=== PATIENT | female | born 1950 | race Caucasian/White ===

== ENCOUNTER 2018-07-16 10:57 | Inpatient (IN) | payer OTHER ==
[2018-07-16 11:30] VITALS: BMI 16.5
--- NOTE | 2018-07-16 12:56 | HP ---
CIWA Score - CIWA Score Nausea/Vomitin Muscle Tremors: 2 Anxiety: 2 Agitation: 2 Paroxysmal Sweats: 1-Minimal Palms Moist Orientation: 0-Oriented Tacttile Disturbances: 1-Very Mild Itch/Numbness Auditory Disturbances: 1-Very Mild Visual Disturbances: 0-None Headache: 2-Mild CIWA-Ar Total Score: 13 Admission ROS BHS - HPI Chief Complaint: i need help to stop drinking alcohol Allergies/Adverse Reactions: Allergies Allergy/AdvReac Type Severity Reaction Status Date / Time No Known Allergies Allergy Verified 07/16/18 12:47 History of Present Illness: this 68 years old female with alcohol dependence,seeking detox,multiple admissions in detox,last detox 06/11/18 to 06/15/18 history of seizure last 2015 syncope alcohol related longest period of sobriety 6 months weight loss - Ebola screening Have you traveled outside of the country in the last 21 days: No (N) Have you had contact with anyone from an Ebola affected area: No Have you been sick,other than usual withdrawal symptoms: No Do you have a fever: No - Review of Systems Constitutional: Loss of Appetite, Malaise, Night Sweats, Changes in sleep, Weakness, Unintentional Wgt. Loss EENT: reports: Nose Congestion Respiratory: reports: No Symptoms reported Cardiac: reports: No Symptoms Reported GI: reports: Nausea, Abdominal cramping : reports: No Symptoms Reported Musculoskeletal: reports: Back Pain, Muscle Pain Integumentary: reports: Dryness Neuro: reports: Tremors Endocrine: reports: No Symptoms Reported Hematology: reports: No Symptoms Reported Psychiatric: reports: Judgement Intact, Mood/Affect Appropiate, Orientated x3 Patient History - Patient Medical History Hx Anemia: No Hx Asthma: No Hx Chronic Obstructive Pulmonary Disease (COPD): No Hx Cancer: No Hx Cardiac Disorders: No (States one episode of AFib, in past, which resolved) Hx Congestive Heart Failure: No Hx Hypertension: No Hx Hypercholesterolemia: No Hx Pacemaker: No HX Cerebrovascular Accident: No Hx Seizures: Yes (alcohol related-last episode was in 2016) Hx Dementia: No Hx Diabetes: No Hx Gastrointestinal Disorders: No Hx Liver Disease: No Hx Genitourinary Disorders: No Hx Sexually Transmitted Disorders: No Hx Renal Disease (ESRD): No Hx Thyroid Disease: No Hx Human Immunodeficiency Virus (HIV): No (2016 last) Hx Hepatitis C: No Hx Depression: No Hx Suicide Attempt: No Hx Bipolar Disorder: No Hx Schizophrenia: No Other Medical History: no sucidal,no homicidal - Patient Surgical History Past Surgical History: Yes Hx Neurologic Surgery: No Hx Cataract Extraction: No Hx Cardiac Surgery: No Hx Lung Surgery: No Hx Breast Surgery: No Hx Breast Biopsy: No Hx Abdominal Surgery: No Hx Appendectomy: No Hx Cholecystectomy: No Hx Genitourinary Surgery: No Hx Section: No Hx Orthopedic Surgery: No Other Surgical History: abscess, left armpit, 05/11/2018/abscess, left 2nd toe in 2017 Anesthesia Reaction: No - PPD History Previous Implant?: Yes Documented Results: Negative w/proof Date: 06/13/18 Results: 0 mm PPD to be Administered?: No - Reproductive History Patient is a Female of Child Bearing Age (11 -55 yrs old): No Last Menstrual Period: 09/07/12 Patient : No - Smoking Cessation Smoking history: Never smoked Have you smoked in the past 12 months: No Hx Chewing Tobacco Use: No - Substance & Tx. History Hx Alcohol Use: Yes Hx Substance Use: No Substance Use Type: Alcohol Hx Substance Use Treatment: Yes ([facility] 06/11/18 to 06/15/18) - Substances Abused Alcohol Route: Oral Frequency: Daily Amount used: 5 20 oz cans of four loco Age of first use: 17 Date of Last Use: 07/16/18 Family Disease History - Family Disease History Family Disease History: Other: Father (alcohol,), Mother (alcohol, ) Admission Physical Exam BHS - Vital Signs Vital Signs: Vital Signs - 24 hr 07/16/18 11:26 Temperature 99.3 F Pulse Rate 96 H Respiratory 17 Rate Blood Pressure 118/70 - Physical General Appearance: Yes: Mild Distress, Intoxicated, Tremorous, Irritable, Anxious HEENTM: Yes: Normal ENT Inspection, JIE, Pharynx Normal Respiratory: Yes: Lungs Clear, Normal Breath Sounds, No Respiratory Distress Neck: Yes: Within Normal Limits, Supple, Trachea in good position Breast: Yes: Breast Exam Deferred Cardiology: Yes: Within Normal Limits, Regular Rhythm, Regular Rate, S1, S2 Abdominal: Yes: Within Normal Limits, Normal Bowel Sounds, Non Tender, Soft Genitourinary: Yes: Within Normal Limits Back: Yes: Within Normal Limits (scoliosis) Musculoskeletal: Yes: Muscle Pain Neurological: Yes: Within Normal Limits, 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 intact, Alert, Motor Strength 5/5 Integumentary: Yes: Dry Lymphatic: Yes: Within Normal Limits - Diagnostic (1) Alcohol dependence with uncomplicated withdrawal Current Visit: No Status: Acute (2) Dehydration Current Visit: No Status: Acute (3) Kyphoscoliosis deformity of spine Current Visit: No Status: Acute (4) Alcohol related seizure Current Visit: Yes Status: Acute (5) Blackout Current Visit: Yes Status: Acute (6) History of atrial fibrillation Current Visit: Yes Status: Acute Cleared for Admission [facility] - Detox or Rehab [facility] Level of Care: Medically Managed Detox Regimen/Protocol: Librium [facility] Breath Alcohol Content Breath Alcohol Content: 0.346 Urine Pregancy Test - Result Urine Test Results: Negative- NO Line Present Urine Drug Screen - Results Drug Screen Negative: No Urine Drug Screen Results: BZO-Benzodiazepines
[2018-07-16] MEDS ORDERED: ACETAMINOPHEN 325 MG TABLET (FP) PO PRN (13:09)
[2018-07-16] MEDS ORDERED: MAGNESIUM CITRATE 300 ML BOTTLE PO PRN (13:09)
[2018-07-16] MEDS ORDERED: chlordiazePOXIDE HCL 25 MG CAPSULE PO PRN (13:09)
[2018-07-16] MEDS ORDERED: MAG HYDROX/AL HYDROX/SIMETH 30 ML UNIT-DOSE CUP PO PRN (13:09)
[2018-07-16] MEDS ORDERED: MENTHOL/PHENOL 1 EACH UD MM PRN (13:09)
[2018-07-16] MEDS ORDERED: IBUPROFEN 400 MG TABLET (FP) PO PRN (13:09)
[2018-07-16] MEDS ORDERED: hydrOXYzine PAMOATE 25 MG CAPSULE (FP) PO PRN (13:09)
[2018-07-16] MEDS ORDERED: MAGNESIUM HYDROX 2400MG/30ML ORAL SUSPENSION 30 ML CUP PO PRN (13:09)
[2018-07-16] MEDS ORDERED: guaiFENesin/D-METHORPHAN HB 10 ML UNIT-DOSE CUPS PO PRN (13:09)
[2018-07-16] MEDS ORDERED: LOPERAMIDE HCL 2 MG CAPSULE PO PRN (13:09)
[2018-07-16] MEDS ORDERED: P-EPHED 60MG/TRIPROLIDI 2.5MG TABLET PO PRN (13:09)
[2018-07-16] MEDS: chlordiazePOXIDE HCL 25 MG CAPSULE PO SCH ×2 (17:23→22:18)
[2018-07-16 18:18] LABS: URINE APPEARANCE CLEAR; URINE BILIRUBIN NEGATIVE (<2.0 mg/dL); URINE COLOR YELLOW; URINE GLUCOSE (UA) NEGATIVE (NEGATIVE); URINE KETONE NEGATIVE (NEGATIVE); URINE LEUK ESTERASE 1+ (NEGATIVE); URINE NITRITE NEGATIVE (NEGATIVE); URINE PROTEIN 1+ (NEGATIVE); URINE UROBILINOGEN NEGATIVE mg/dL (0.2-1.0)
[2018-07-16 18:39] LABS: EPI CELLS RARE /HPF (FEW); URINE BACTERIA RARE /hpf (NONE SEEN); URINE HYALINE CAST 16 /lpf; URINE MUCUS RARE
[2018-07-16] MEDS: THIAMINE HCL 100 MG TABLET (FP) PO SCH (22:17)
[2018-07-16] MEDS: MELATONIN 5 MG TABLETS PO PRN (22:18)
[2018-07-17] MEDS: chlordiazePOXIDE HCL 25 MG CAPSULE PO SCH ×4 (05:49→22:29)
[2018-07-17 09:59] LABS: HEMATOCRIT 33.6 % (32.4-45.2); HEMOGLOBIN 11.2 GM/dL (10.7-15.3); MCH 30.9 pg (25.7-33.7); MCHC 33.5 g/dl (32.0-36.0); MEAN CELL VOLUME 92.4 fl (80-96); MEAN PLT VOLUME 6.9 fl (7.5-11.1); PLATELET COUNT 112 K/MM3 (134-434); RBC 3.63 M/mm3 (3.60-5.2); RDW 17.3 % (11.6-15.6)
[2018-07-17 10:48] LABS: ALBUMIN 3.3 g/dl (3.4-5.0); ALK PHOS 90 U/L (45-117); ANION GAP 9 MMOL/L (8-16); BILIRUBIN,TOTAL 1.3 mg/dL (0.2-1); BLOOD UREA NITROGEN 4 mg/dL (7-18); CALCIUM 9.3 mg/dL (8.5-10.1); CHLORIDE 98 mmol/L (98-107); CO2 32 mmol/L (21-32); CREATININE 0.5 mg/dL (0.55-1.3); GLUCOSE,RANDOM 87 mg/dL (74-106); POTASSIUM 3.8 mmol/L (3.5-5.1); SGOT/AST 41 U/L (15-37); SGPT/ALT 19 U/L (13-61); SODIUM 138 mmol/L (136-145); TOT PROT 6.5 g/dl (6.4-8.2)
[2018-07-17] MEDS: PRENATAL VITAMINS W/ FOLIC ACID TABLET (FP) PO SCH (10:50)
--- NOTE | 2018-07-17 13:55 | PN ---
[facility] CIWA - CIWA Score Nausea/Vomitin-No Nausea/No Vomiting Muscle Tremors: 4-Moderate,w/Arms Extend Anxiety: 4-Mod. Anxious/Guarded Agitation: 4-Moderately Restless Paroxysmal Sweats: 3 Orientation: 0-Oriented Tacttile Disturbances: 0-None Auditory Disturbances: 0-None Visual Disturbances: 0-None Headache: 0-None Present CIWA-Ar Total Score: 15 BHS Progress Note (SOAP) Subjective: shakes sweats irritable interrupted sleep body aches Objective: 07/17/18 13:55 Vital Signs Temperature 98.2 F 07/17/18 10:00 Pulse Rate 97 H 07/17/18 10:00 Respiratory Rate 18 07/17/18 10:00 Blood Pressure 151/83 07/17/18 10:00 O2 Sat by Pulse Oximetry (%) Laboratory Tests 07/16/18 07/17/18 07/17/18 15:45 07:00 07:00 WBC 2.0 L RBC 3.63 Hgb 11.2 Hct 33.6 MCV 92.4 MCH 30.9 MCHC 33.5 RDW 17.3 H Plt Count 112 L D MPV 6.9 L D Sodium 138 Potassium 3.8 Chloride 98 Carbon Dioxide 32 Anion Gap 9 BUN 4 L Creatinine 0.5 L Creat Clearance w eGFR > 60 Random Glucose 87 Calcium 9.3 Total Bilirubin 1.3 H AST 41 H ALT 19 Alkaline Phosphatase 90 Total Protein 6.5 Albumin 3.3 L Urine Color Yellow Urine Appearance Clear Urine pH 6.0 D Ur Specific [place] 1.010 Urine Protein 1+ H Urine Glucose (UA) Negative Urine Ketones Negative Urine Blood 1+ H Urine Nitrite Negative Urine Bilirubin Negative Urine Urobilinogen Negative Ur Leukocyte Esterase 1+ H Urine WBC (Auto) 2 Urine RBC (Auto) <1 Ur Epithelial Cells Rare Urine Bacteria Rare Hyaline Casts 16 Urine Mucus Rare RPR Titer 07/17/18 07:00 WBC RBC Hgb Hct MCV MCH MCHC RDW Plt Count MPV Sodium Potassium Chloride Carbon Dioxide Anion Gap BUN Creatinine Creat Clearance w eGFR Random Glucose Calcium Total Bilirubin AST ALT Alkaline Phosphatase Total Protein Albumin Urine Color Urine Appearance Urine pH Ur Specific [place] Urine Protein Urine Glucose (UA) Urine Ketones Urine Blood Urine Nitrite Urine Bilirubin Urine Urobilinogen Ur Leukocyte Esterase Urine WBC (Auto) Urine RBC (Auto) Ur Epithelial Cells Urine Bacteria Hyaline Casts Urine Mucus RPR Titer Nonreactive aaox3 ambulating no acute distress Assessment: 07/17/18 13:55 withdrawal sx Plan: continue detox increase fluids
[2018-07-17] MEDS: MELATONIN 5 MG TABLETS PO PRN (22:29)
[2018-07-17] MEDS: THIAMINE HCL 100 MG TABLET (FP) PO SCH (22:29)
[2018-07-18] MEDS: chlordiazePOXIDE HCL 25 MG CAPSULE PO SCH ×2 (06:15→10:34)
[2018-07-18] MEDS: PRENATAL VITAMINS W/ FOLIC ACID TABLET (FP) PO SCH (10:34)
--- NOTE | 2018-07-18 15:39 | PN ---
S CIWA - CIWA Score Nausea/Vomitin Muscle Tremors: 3 Anxiety: 3 Agitation: 2 Paroxysmal Sweats: 2 Orientation: 0-Oriented Tacttile Disturbances: 1-Very Mild Itch/Numbness Auditory Disturbances: 0-None Visual Disturbances: 0-None Headache: 0-None Present CIWA-Ar Total Score: 13 S Progress Note (SOAP) Subjective: interrupted sleep, tremors, acid reflux, decrease appetite Objective: 07/18/18 15:38 Vital Signs Temperature 98.1 F 07/18/18 15:13 Pulse Rate 81 07/18/18 15:13 Respiratory Rate 16 07/18/18 15:13 Blood Pressure 102/66 07/18/18 15:13 O2 Sat by Pulse Oximetry (%) Laboratory Last Values WBC 2.0 K/mm3 (4.0-10.0) L 07/17/18 07:00 RBC 3.63 M/mm3 (3.60-5.2) 07/17/18 07:00 Hgb 11.2 GM/dL (10.7-15.3) 07/17/18 07:00 Hct 33.6 % (32.4-45.2) 07/17/18 07:00 MCV 92.4 fl (80-96) 07/17/18 07:00 MCH 30.9 pg (25.7-33.7) 07/17/18 07:00 MCHC 33.5 g/dl (32.0-36.0) 07/17/18 07:00 RDW 17.3 % (11.6-15.6) H 07/17/18 07:00 Plt Count 112 K/MM3 (134-434) L D 07/17/18 07:00 MPV 6.9 fl (7.5-11.1) L D 07/17/18 07:00 Sodium 138 mmol/L (136-145) 07/17/18 07:00 Potassium 3.8 mmol/L (3.5-5.1) 07/17/18 07:00 Chloride 98 mmol/L (98-107) 07/17/18 07:00 Carbon Dioxide 32 mmol/L (21-32) 07/17/18 07:00 Anion Gap 9 MMOL/L (8-16) 07/17/18 07:00 BUN 4 mg/dL (7-18) L 07/17/18 07:00 Creatinine 0.5 mg/dL (0.55-1.3) L 07/17/18 07:00 Creat Clearance w eGFR > 60 (>60) 07/17/18 07:00 Random Glucose 87 mg/dL (74-106) 07/17/18 07:00 Calcium 9.3 mg/dL (8.5-10.1) 07/17/18 07:00 Total Bilirubin 1.3 mg/dL (0.2-1) H 07/17/18 07:00 AST 41 U/L (15-37) H 07/17/18 07:00 ALT 19 U/L (13-61) 07/17/18 07:00 Alkaline Phosphatase 90 U/L (45-117) 07/17/18 07:00 Total Protein 6.5 g/dl (6.4-8.2) 07/17/18 07:00 Albumin 3.3 g/dl (3.4-5.0) L 07/17/18 07:00 Urine Color Yellow 07/16/18 15:45 Urine Appearance Clear 07/16/18 15:45 Urine pH 6.0 (5.0-8.0) D 07/16/18 15:45 Ur Specific [place] 1.010 (1.010-1.035) 07/16/18 15:45 Urine Protein 1+ (NEGATIVE) H 07/16/18 15:45 Urine Glucose (UA) Negative (NEGATIVE) 07/16/18 15:45 Urine Ketones Negative (NEGATIVE) 07/16/18 15:45 Urine Blood 1+ (NEGATIVE) H 07/16/18 15:45 Urine Nitrite Negative (NEGATIVE) 07/16/18 15:45 Urine Bilirubin Negative (<2.0 mg/dL) 07/16/18 15:45 Urine Urobilinogen Negative mg/dL (0.2-1.0) 07/16/18 15:45 Ur Leukocyte Esterase 1+ (NEGATIVE) H 07/16/18 15:45 Urine WBC (Auto) 2 /hpf (3-5) 07/16/18 15:45 Urine RBC (Auto) <1 /hpf (0-3) 07/16/18 15:45 Ur Epithelial Cells Rare /HPF (FEW) 07/16/18 15:45 Urine Bacteria Rare /hpf (NONE SEEN) 07/16/18 15:45 Hyaline Casts 16 /lpf 07/16/18 15:45 Urine Mucus Rare 07/16/18 15:45 RPR Titer Nonreactive (NONREACTIVE) 07/17/18 07:00 repeat CBC, u/a and u/C Aox3 anxious, thin + mild hand tremors full ROM ambulating in the unit Assessment: 07/18/18 15:38 withdrawal sx Plan: protonix 20 mg qd ensure 120 ml PO TID increase fluids CBC, u/a and U/C continue to monitor
[2018-07-18] MEDS: PANTOPRAZOLE 20 MG TABLET (FP) PO SCH (17:21)
[2018-07-18] MEDS: chlordiazePOXIDE 5 MG CAPSULE PO SCH ×2 (17:21→22:10)
[2018-07-18] MEDS: MELATONIN 5 MG TABLETS PO PRN (22:10)
[2018-07-18] MEDS: THIAMINE HCL 100 MG TABLET (FP) PO SCH (22:10)
[2018-07-19] MEDS: chlordiazePOXIDE 5 MG CAPSULE PO SCH ×2 (06:11→10:31)
[2018-07-19] MEDS: PRENATAL VITAMINS W/ FOLIC ACID TABLET (FP) PO SCH (10:31)
[2018-07-19] MEDS: PANTOPRAZOLE 20 MG TABLET (FP) PO SCH (10:31)
[2018-07-19 11:12] LABS: BASO % 0.4 % (0-2.0); EOS % 2.1 % (0-4.5); HEMATOCRIT 36.2 % (32.4-45.2); HEMOGLOBIN 12.1 GM/dL (10.7-15.3); LYMPH % 27.7 % (8-40); MCH 31.3 pg (25.7-33.7); MCHC 33.5 g/dl (32.0-36.0); MEAN CELL VOLUME 93.3 fl (80-96); MEAN PLT VOLUME 7.3 fl (7.5-11.1); MONO % 9.3 % (3.8-10.2); NEUT % 60.5 % (42.8-82.8); PLATELET COUNT 126 K/MM3 (134-434); RBC 3.88 M/mm3 (3.60-5.2); RDW 17.4 % (11.6-15.6); WHITE BLOOD COUNT 3.5 K/mm3 (4.0-10.0)
[2018-07-19 11:57] LABS: URINE APPEARANCE CLEAR; URINE BILIRUBIN NEGATIVE (<2.0 mg/dL); URINE COLOR YELLOW; URINE GLUCOSE (UA) NEGATIVE (NEGATIVE); URINE KETONE NEGATIVE (NEGATIVE); URINE LEUK ESTERASE 1+ (NEGATIVE); URINE NITRITE NEGATIVE (NEGATIVE); URINE PROTEIN NEGATIVE (NEGATIVE); URINE UROBILINOGEN NEGATIVE mg/dL (0.2-1.0)
[2018-07-19 12:04] LABS: EPI CELLS RARE /HPF (FEW); URINE MUCUS RARE
--- NOTE | 2018-07-19 14:09 | PN ---
BHS Progress Note (SOAP) Subjective: feeling better no tremor less sweat wants to go to rehab but worry about a sick friend at home patient wants to return to [facility] for rehab on 07/22/18 with some clothe and arrange care for friend Objective: 07/19/18 14:08 Vital Signs Temperature 97.0 F L 07/19/18 10:00 Pulse Rate 89 07/19/18 10:00 Respiratory Rate 18 07/19/18 10:00 Blood Pressure 124/79 07/19/18 10:00 O2 Sat by Pulse Oximetry (%) Laboratory Last Values WBC 3.5 K/mm3 (4.0-10.0) L 07/19/18 07:30 RBC 3.88 M/mm3 (3.60-5.2) 07/19/18 07:30 Hgb 12.1 GM/dL (10.7-15.3) 07/19/18 07:30 Hct 36.2 % (32.4-45.2) 07/19/18 07:30 MCV 93.3 fl (80-96) 07/19/18 07:30 MCH 31.3 pg (25.7-33.7) 07/19/18 07:30 MCHC 33.5 g/dl (32.0-36.0) 07/19/18 07:30 RDW 17.4 % (11.6-15.6) H 07/19/18 07:30 Plt Count 126 K/MM3 (134-434) L 07/19/18 07:30 MPV 7.3 fl (7.5-11.1) L 07/19/18 07:30 Absolute Neuts (auto) 2.1 K/mm3 (1.5-8.0) 07/19/18 07:30 Neutrophils % 60.5 % (42.8-82.8) 07/19/18 07:30 Lymphocytes % 27.7 % (8-40) 07/19/18 07:30 Monocytes % 9.3 % (3.8-10.2) 07/19/18 07:30 Eosinophils % 2.1 % (0-4.5) 07/19/18 07:30 Basophils % 0.4 % (0-2.0) 07/19/18 07:30 Nucleated RBC % 0 % (0-0) 07/19/18 07:30 Sodium 138 mmol/L (136-145) 07/17/18 07:00 Potassium 3.8 mmol/L (3.5-5.1) 07/17/18 07:00 Chloride 98 mmol/L (98-107) 07/17/18 07:00 Carbon Dioxide 32 mmol/L (21-32) 07/17/18 07:00 Anion Gap 9 MMOL/L (8-16) 07/17/18 07:00 BUN 4 mg/dL (7-18) L 07/17/18 07:00 Creatinine 0.5 mg/dL (0.55-1.3) L 07/17/18 07:00 Creat Clearance w eGFR > 60 (>60) 07/17/18 07:00 Random Glucose 87 mg/dL (74-106) 07/17/18 07:00 Calcium 9.3 mg/dL (8.5-10.1) 07/17/18 07:00 Total Bilirubin 1.3 mg/dL (0.2-1) H 07/17/18 07:00 AST 41 U/L (15-37) H 07/17/18 07:00 ALT 19 U/L (13-61) 07/17/18 07:00 Alkaline Phosphatase 90 U/L (45-117) 07/17/18 07:00 Total Protein 6.5 g/dl (6.4-8.2) 07/17/18 07:00 Albumin 3.3 g/dl (3.4-5.0) L 07/17/18 07:00 Urine Color Yellow 07/19/18 07:30 Urine Appearance Clear 07/19/18 07:30 Urine pH 8.0 (5.0-8.0) D 07/19/18 07:30 Ur Specific [place] 1.009 (1.010-1.035) L 07/19/18 07:30 Urine Protein Negative (NEGATIVE) 07/19/18 07:30 Urine Glucose (UA) Negative (NEGATIVE) 07/19/18 07:30 Urine Ketones Negative (NEGATIVE) 07/19/18 07:30 Urine Blood Negative (NEGATIVE) 07/19/18 07:30 Urine Nitrite Negative (NEGATIVE) 07/19/18 07:30 Urine Bilirubin Negative (<2.0 mg/dL) 07/19/18 07:30 Urine Urobilinogen Negative mg/dL (0.2-1.0) 07/19/18 07:30 Ur Leukocyte Esterase 1+ (NEGATIVE) H 07/19/18 07:30 Urine WBC (Auto) 2 /hpf (3-5) 07/19/18 07:30 Urine RBC (Auto) None /hpf (0-3) 07/19/18 07:30 Ur Epithelial Cells Rare /HPF (FEW) 07/19/18 07:30 Urine Bacteria Rare /hpf (NONE SEEN) 07/16/18 15:45 Hyaline Casts 16 /lpf 07/16/18 15:45 Urine Mucus Rare 07/19/18 07:30 RPR Titer Nonreactive (NONREACTIVE) 07/17/18 07:00 lab noted Assessment: 07/19/18 14:09 mild withdrawal sx Plan: medically supervised detox
[2018-07-19] MEDS: chlordiazePOXIDE HCL 10 MG CAPSULE PO SCH ×2 (17:53→22:10)
[2018-07-19] MEDS: THIAMINE HCL 100 MG TABLET (FP) PO SCH (22:10)
[2018-07-19] MEDS: MELATONIN 5 MG TABLETS PO PRN (22:10)
[2018-07-20] MEDS: chlordiazePOXIDE HCL 10 MG CAPSULE PO SCH (05:52)
--- NOTE | 2018-07-20 08:53 | DS ---
[facility] Detox Discharge Summary Admission Date: 07/16/18 Discharge Date: 07/20/18 - History Present History: Alcohol Dependence - Physical Exam Results Vital Signs: Vital Signs Temperature 97 F L 07/20/18 06:00 Pulse Rate 68 07/20/18 06:00 Respiratory Rate 16 07/20/18 06:00 Blood Pressure 125/69 07/20/18 06:00 O2 Sat by Pulse Oximetry (%) - Treatment Hospital Course: Detox Protocol Followed, Detoxed Safely, Responded well, Discharged Condition Good, Rehab Referral Accepted - Medication Discharge Medications: Ambulatory Orders NK [No Known Home Medication] 07/16/18 - Diagnosis (1) Alcohol dependence with uncomplicated intoxication Current Visit: Yes Status: Chronic (2) Alcohol dependence with uncomplicated withdrawal Current Visit: Yes Status: Chronic (3) Alcohol related seizure Current Visit: Yes Status: Acute (4) Blackout Current Visit: Yes Status: Acute (5) GERD (gastroesophageal reflux disease) Current Visit: Yes Status: Acute Qualifiers: Esophagitis presence: without esophagitis Qualified Code(s): K21.9 - Gastro -esophageal reflux disease without esophagitis (6) History of atrial fibrillation Current Visit: Yes Status: Acute (7) Weight loss Current Visit: Yes Status: Acute (8) Abscess of axilla, left Current Visit: No Status: Acute (9) Alcohol-induced psychosis Current Visit: No Status: Acute (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 Current Visit: No Status: Acute (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 Current Visit: No Status: Acute (12) Cutaneous abscess of axilla Current Visit: No Status: Acute Qualifiers: Laterality: left Qualified Code(s): L02.412 - Cutaneous abscess of left axilla (13) Dehydration Current Visit: No Status: Acute (14) Depression Current Visit: No Status: Acute (15) Diarrhea Current Visit: No Status: Acute (16) Kyphoscoliosis deformity of spine Current Visit: No Status: Acute (17) Alcohol dependence Current Visit: No Status: Chronic (18) Seizure Current Visit: No Status: Chronic (19) Syncope Current Visit: No Status: Chronic - AMA Did Patient Leave Against Medical Advice: No ([facility] inpatient)
[2018-07-20 09:17] VITALS: BP 124/72; PULSE 107; TEMP 97.8
[2018-07-20] MEDS: PRENATAL VITAMINS W/ FOLIC ACID TABLET (FP) PO SCH (09:20)
[2018-07-20] MEDS: PANTOPRAZOLE 20 MG TABLET (FP) PO SCH (09:20)
== END 2018-07-20 09:45 | disposition home or self-care (01) | DRG 897 ==
LOC: YASAS 10:57 → Y6N 13:07
PROC: HZ2ZZZZ Detoxification Services for Substance Abuse Treatment (ICD-10-PCS; principal; 2018-07-16)
DX: F10.230 Alcohol dependence with withdrawal, uncomplicated (principal); F10.220 Alcohol dependence with intoxication, uncomplicated; F10.282 Alcohol dependence with alcohol-induced sleep disorder; F10.251 Alcohol dependence with alcohol-induced psychotic disorder with hallucinations; F32.9 Major depressive disorder, single episode, unspecified; K21.9 Gastro-esophageal reflux disease without esophagitis; E86.0 Dehydration; R19.7 Diarrhea, unspecified; M41.9 Scoliosis, unspecified; Z86.79 Personal history of other diseases of the circulatory system; Z86.69 Personal history of other diseases of the nervous system and sense organs; Z87.898 Personal history of other specified conditions
CPT/HCPCS: 36415; 80053; 81003; 81015; 85025; 85027; 86593; 87086

== ENCOUNTER 2018-07-21 10:40 | Inpatient (IN) | payer OTHER ==
[2018-07-21 11:23] VITALS: BMI 18.5
--- NOTE | 2018-07-21 13:24 | HP ---
Admission ROS [facility] Chief Complaint: alcohol rehabilitation Allergies/Adverse Reactions: Allergies Allergy/AdvReac Type Severity Reaction Status Date / Time No Known Allergies Allergy Verified 07/21/18 11:28 History of Present Illness: Patient is a 68 yo female with hx of alcohol dependence is is here seeking rehabilitation, this is one of multiple admissions d/t relapse. Patient completed detox at [facility] 07/16/18 -07/20/18. PMHX: GERD, OA. Denies psychiatric hx. Denies suicidal / homicidal ideation. Reports hx of seizure with last episode 2016 and alcohol related syncope. Longest period of sobriety six months. Exam Limitations: No Limitations - Ebola screening Have you traveled outside of the country in the last 21 days: No (N) Have you had contact with anyone from an Ebola affected area: No Have you been sick,other than usual withdrawal symptoms: No Do you have a fever: No - Review of Systems Constitutional: Changes in sleep, Weakness EENT: reports: No Symptoms Reported Respiratory: reports: No Symptoms reported Cardiac: reports: No Symptoms Reported GI: reports: Indigestion : reports: No Symptoms Reported Musculoskeletal: reports: No Symptoms Reported Integumentary: reports: No Symptoms Reported Neuro: reports: Weakness Endocrine: reports: Increased Thirst Hematology: reports: No Symptoms Reported Psychiatric: reports: Orientated x3, Anxious Other Systems: Reviewed and Negative Patient History - Patient Medical History Hx Anemia: No Hx Asthma: No Hx Chronic Obstructive Pulmonary Disease (COPD): No Hx Cancer: No Hx Cardiac Disorders: Yes (States one episode of AFib, in past, which resolved years ago) Hx Congestive Heart Failure: No Hx Hypertension: No Hx Hypercholesterolemia: No Hx Pacemaker: No HX Cerebrovascular Accident: No Hx Seizures: Yes (alcohol related-last episode was in 2016) Hx Dementia: No Hx Diabetes: No Hx Gastrointestinal Disorders: No Hx Liver Disease: No Hx Genitourinary Disorders: No Hx Sexually Transmitted Disorders: No Hx Renal Disease (ESRD): No Hx Thyroid Disease: No Hx Human Immunodeficiency Virus (HIV): No (2016 last) Hx Hepatitis C: No Hx Depression: No Hx Suicide Attempt: No Hx Bipolar Disorder: No Hx Schizophrenia: No - Patient Surgical History Past Surgical History: Yes Hx Neurologic Surgery: No Hx Cataract Extraction: No Hx Cardiac Surgery: No Hx Lung Surgery: No Hx Breast Surgery: No Hx Breast Biopsy: No Hx Abdominal Surgery: No Hx Appendectomy: No Hx Cholecystectomy: No Hx Genitourinary Surgery: No Hx Section: No Hx Orthopedic Surgery: No Other Surgical History: abscess, left Axilla, 05/11/2018/abscess, left 2nd toe in 2017 Anesthesia Reaction: No - PPD History Previous Implant?: Yes Documented Results: Negative w/proof Implanted On Prior [facility] Admission?: Yes Date: 06/13/18 Results: 0mm PPD to be Administered?: No - Reproductive History Last Menstrual Period: 09/07/12 - Smoking Cessation Smoking history: Never smoked Have you smoked in the past 12 months: No Hx Chewing Tobacco Use: No Initiated information on smoking cessation: No - Substance & Tx. History Hx Alcohol Use: Yes Hx Substance Use: Yes Substance Use Type: Alcohol Hx Substance Use Treatment: Yes ([facility] detox 07/16/18 -07/20/18) - Substances Abused Alcohol Route: Oral Frequency: Daily Amount used: BEERS- 5DAILY Age of first use: 17 Date of Last Use: 07/15/18 Family Disease History - Family Disease History Family Disease History: Other: Father (alcohol,), Mother (alcohol, ) Admission Physical Exam [facility] - Vital Signs Vital Signs: Vital Signs - 24 hr 07/21/18 11:09 Temperature 96.1 F L Pulse Rate 88 Respiratory 17 Rate Blood Pressure 146/72 - Physical General Appearance: Yes: Appropriately Dressed, Thin, Anxious HEENTM: Yes: EOMI, Hearing grossly Normal, Normal ENT Inspection, Normocephalic , Normal Voice, JIE, Pharynx Normal, Tm's normal, Other (wears glaasses) Respiratory: Yes: Chest Non-Tender, Lungs Clear, Normal Breath Sounds, No Respiratory Distress, No Accessory Muscle Use Neck: Yes: Within Normal Limits Breast: Yes: Breast Exam Deferred Cardiology: Yes: Regular Rhythm, Regular Rate Abdominal: Yes: Normal Bowel Sounds, Non Tender, Flat, Soft Genitourinary: Yes: Within Normal Limits Back: Yes: Normal Inspection Musculoskeletal: Yes: full range of Motion, Gait Steady, Pelvis Stable Extremities: Yes: Normal Capillary Refill, Normal Inspection, Normal Range of Motion, Non-Tender 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, Fully Oriented, Alert, Motor Strength 5/5, Depressed Affect Integumentary: Yes: Normal Color, Dry, Warm Lymphatic: Yes: Within Normal Limits - Diagnostic (1) GERD (gastroesophageal reflux disease) Current Visit: Yes Status: Acute Qualifiers: Esophagitis presence: without esophagitis Qualified Code(s): K21.9 - Gastro -esophageal reflux disease without esophagitis (2) History of atrial fibrillation Current Visit: Yes Status: Chronic (3) Kyphoscoliosis deformity of spine Current Visit: Yes Status: Chronic (4) Weight loss Current Visit: Yes Status: Acute (5) Alcohol dependence Current Visit: Yes Status: Chronic Qualifiers: Substance use status: uncomplicated Qualified Code(s): F10.20 - Alcohol dependence, uncomplicated BHS Breath Alcohol Content Breath Alcohol Content: 0 Urine Pregancy Test - Result Urine Test Results: Negative- NO Line Present Urine Drug Screen - Results Drug Screen Negative: No Urine Drug Screen Results: BZO-Benzodiazepines Inpatient Rehab Admission - Initial Determination Are CD services needed?: Yes Free of communicable disease: Yes Not in need of hospitalization: Yes - Rehab Admission Criteria Previous failed treatment: Yes Poor recovery environment: Yes Comorbidities: Yes Lacks judgement: Yes Patient is meeting Inpatient Rehab admission criteria:: Yes
[2018-07-21] MEDS ORDERED: LOPERAMIDE HCL 2 MG CAPSULE PO PRN (13:27)
[2018-07-21] MEDS ORDERED: IBUPROFEN 400 MG TABLET (FP) PO PRN (13:27)
[2018-07-21] MEDS ORDERED: ACETAMINOPHEN 325 MG TABLET (FP) PO PRN (13:27)
[2018-07-21] MEDS ORDERED: MAGNESIUM HYDROX 2400MG/30ML ORAL SUSPENSION 30 ML CUP PO PRN (13:27)
[2018-07-21] MEDS ORDERED: guaiFENesin/D-METHORPHAN HB 10 ML UNIT-DOSE CUPS PO PRN (13:27)
[2018-07-21] MEDS ORDERED: MENTHOL/PHENOL 1 EACH UD MM PRN (13:27)
[2018-07-21] MEDS ORDERED: P-EPHED 60MG/TRIPROLIDI 2.5MG TABLET PO PRN (13:27)
[2018-07-21] MEDS ORDERED: MAGNESIUM CITRATE 300 ML BOTTLE PO PRN (13:27)
[2018-07-21] MEDS ORDERED: MAG HYDROX/AL HYDROX/SIMETH 30 ML UNIT-DOSE CUP PO PRN (13:27)
[2018-07-21] MEDS: THIAMINE HCL 100 MG TABLET (FP) PO SCH (21:05)
[2018-07-21] MEDS ORDERED: MELATONIN 5 MG TABLETS PO PRN (22:00)
--- NOTE | 2018-07-22 09:01 | HP ---
Psychiatrist Admission - Data Date of interview: 07/22/18 Admission source: [facility] Identifying data: This is the second admission to [address] [place] [address] for this 68 years old caucaisan single female, mother of 5 grown children,undomiciled,supported by correction. Medical History: Significant for GERD,Kyfoscolioisis,Chronic arthritis. Psychiatric History: No regular psychiatric history,reports one psychiatric admission.No regular psychiatric care.Patient is not on any medications and is not willing to restart it at thiis time. Vital Signs: Vital Signs - 24 hr 07/21/18 07/21/18 07/22/18 11:09 15:40 00:30 Temperature 96.1 F L 97.2 F L Pulse Rate 88 81 Respiratory 17 18 16 Rate Blood Pressure 146/72 143/87 07/22/18 07/22/18 03:30 06:00 Temperature 97.3 F L Pulse Rate 76 Respiratory 16 16 Rate Blood Pressure 105/61 Allergies/Adverse Reactions: Allergies Allergy/AdvReac Type Severity Reaction Status Date / Time No Known Allergies Allergy Verified 07/21/18 11:28 Concur with the findings of this exam: Yes - Substance Abuse/Tx History Hx Alcohol Use: Yes Hx Substance Use: No Substance Use Type: Alcohol Hx Substance Use Treatment: Yes (completed this prograsm) Mental Status Exam - Mental Status Exam Alert and Oriented to: Time, Place, Person Cognitive Function: Grossly Intact Patient Appearance: Unkempt Mood: Sad Affect: Mood Congruent, Labile Patient Behavior: Cooperative Speech Pattern: Clear Voice Loudness: Normal Thought Process: Goal Oriented Thought Disorder: Not Present Hallucinations: Denies Suicidal Ideation: Denies Homicidal Ideation: Denies Insight/Judgement: Fair Sleep: Fair Appetite: Fair Muscle strength/Tone: Normal Gait/Station: Normal Psychiatric Findings - Problem List ([place] 1, 2,3) (1) GERD (gastroesophageal reflux disease) Current Visit: Yes Status: Acute Qualifiers: Esophagitis presence: without esophagitis Qualified Code(s): K21.9 - Gastro -esophageal reflux disease without esophagitis (2) Alcohol dependence Current Visit: Yes Status: Chronic Qualifiers: Substance use status: uncomplicated Qualified Code(s): F10.20 - Alcohol dependence, uncomplicated (3) History of atrial fibrillation Current Visit: Yes Status: Chronic (4) Kyphoscoliosis deformity of spine Current Visit: Yes Status: Chronic - Initial Treatment Plan Initial Treatment Plan: Will monitor progress.
[2018-07-22] MEDS: PRENATAL VITAMINS W/ FOLIC ACID TABLET (FP) PO SCH (09:28)
[2018-07-22] MEDS: THIAMINE HCL 100 MG TABLET (FP) PO SCH (21:26)
[2018-07-23] MEDS: PRENATAL VITAMINS W/ FOLIC ACID TABLET (FP) PO SCH (09:54)
[2018-07-23] MEDS: THIAMINE HCL 100 MG TABLET (FP) PO SCH (21:15)
[2018-07-24] MEDS: PRENATAL VITAMINS W/ FOLIC ACID TABLET (FP) PO SCH (09:50)
[2018-07-24] MEDS: THIAMINE HCL 100 MG TABLET (FP) PO SCH (21:15)
[2018-07-25] MEDS: PRENATAL VITAMINS W/ FOLIC ACID TABLET (FP) PO SCH (09:37)
[2018-07-25] MEDS: THIAMINE HCL 100 MG TABLET (FP) PO SCH (21:09)
[2018-07-26] MEDS: PRENATAL VITAMINS W/ FOLIC ACID TABLET (FP) PO SCH (09:51)
[2018-07-26] MEDS: THIAMINE HCL 100 MG TABLET (FP) PO SCH (21:27)
[2018-07-27] MEDS: PRENATAL VITAMINS W/ FOLIC ACID TABLET (FP) PO SCH (09:43)
[2018-07-27] MEDS: THIAMINE HCL 100 MG TABLET (FP) PO SCH (22:09)
[2018-07-28] MEDS: PRENATAL VITAMINS W/ FOLIC ACID TABLET (FP) PO SCH (10:00)
[2018-07-28] MEDS: THIAMINE HCL 100 MG TABLET (FP) PO SCH (22:31)
[2018-07-29] MEDS: PRENATAL VITAMINS W/ FOLIC ACID TABLET (FP) PO SCH (10:00)
[2018-07-29] MEDS: THIAMINE HCL 100 MG TABLET (FP) PO SCH (21:26)
[2018-07-30] MEDS: PRENATAL VITAMINS W/ FOLIC ACID TABLET (FP) PO SCH (10:43)
[2018-07-30] MEDS: THIAMINE HCL 100 MG TABLET (FP) PO SCH (21:25)
[2018-07-31] MEDS: PRENATAL VITAMINS W/ FOLIC ACID TABLET (FP) PO SCH (09:52)
[2018-07-31] MEDS: THIAMINE HCL 100 MG TABLET (FP) PO SCH (21:32)
[2018-08-01] MEDS: PRENATAL VITAMINS W/ FOLIC ACID TABLET (FP) PO SCH (09:43)
[2018-08-01] MEDS: THIAMINE HCL 100 MG TABLET (FP) PO SCH (21:45)
[2018-08-02] MEDS: PRENATAL VITAMINS W/ FOLIC ACID TABLET (FP) PO SCH (10:08)
[2018-08-02] MEDS: THIAMINE HCL 100 MG TABLET (FP) PO SCH (21:22)
[2018-08-03] MEDS: PRENATAL VITAMINS W/ FOLIC ACID TABLET (FP) PO SCH (10:02)
--- NOTE | 2018-08-03 13:52 | PN ---
Psychiatric Progress Note Vital Signs: Vital Signs Period Temp Pulse Resp BP Sys/Jama Pulse Ox Last 24 Hr 97.8 F 73 16-16 133/80 Date of Session: 08/03/18 Chief Complaint:: Discharge Note HPI: Patient addressing Alcohol Dependence ROS: GERD, Alcohol related seizure, H/O AFib were medically managed Current Medications: Active Medications Generic Name Dose Route Start Last Admin Trade Name Freq PRN Reason Stop Dose Admin Acetaminophen 650 mg 07/21/18 13:27 Tylenol - PO Q4H PRN FEVER Al Hydroxide/Mg Hydroxide 30 ml 07/21/18 13:27 Mylanta Oral Suspension - PO Q6H PRN DYSPEPSIA Eucalyptus/Menthol/Phenol/Sorbitol 1 each 07/21/18 13:27 Cepastat Lozenge - MM Q4H PRN SORE THROAT Guaifenesin 10 ml 07/21/18 13:27 Robitussin Dm - PO Q6H PRN COUGH Ibuprofen 400 mg 07/21/18 13:27 Motrin - PO Q6H PRN Pain level 4-6 Loperamide HCl 4 mg 07/21/18 13:27 Imodium - PO Q6H PRN DIARRHEA Magnesium Citrate 300 ml 07/21/18 13:27 Citroma - PO Q48H PRN CONSTIPATION Magnesium Hydroxide 30 ml 07/21/18 13:27 Milk Of Magnesia - PO DAILY PRN CONSTIPATION Melatonin 5 mg 07/21/18 22:00 Melatonin PO HS PRN INSOMNIA Multivit/Folic Acid/Iron 1 tab 07/22/18 10:00 08/03/18 10:02 Vitamins ([facility]) - PO 1 tab DAILY ANTONIA Administration Pseudoephedrine/Triprolidine 1 combo 07/21/18 13:27 Actifed - PO TID PRN NASAL CONGESTION Thiamine HCl 100 mg 07/21/18 22:00 08/02/18 21:22 Vitamin B1 - PO 100 mg HS ANTONIA Administration Current Side Effect: No Lab tests ordered: Yes Lab tests reviewed: Yes Provider note:: Patient will complete this program on 08/04/18. He has met his treatment goals and will continue to address his issues in outpatient treatment at [facility] at [address] [place] [address]. Told process description writer that from his participation in this program, she has learned the physical consequences of addiction. She is stable for discharge on 08/04/18 Total face to face time:: 35 Mental Status Exam - Mental Status Exam Alert and Oriented to: Time, Place, Person Cognitive Function: Fair Patient Appearance: Well Groomed Mood: Hopeful, Euthymic Affect: Appropriate Patient Behavior: Cooperative Speech Pattern: Clear Voice Loudness: Normal Thought Process: Intact Thought Disorder: Not Present Hallucinations: Denies Suicidal Ideation: Denies Homicidal Ideation: Denies Insight/Judgement: Fair Sleep: Fair Appetite: Good Muscle strength/Tone: Normal Gait/Station: Normal Psychiatric Treatment Plan - Problem List (1) Alcohol dependence Current Visit: Yes Qualifiers: Substance use status: uncomplicated Qualified Code(s): F10.20 - Alcohol dependence, uncomplicated (2) GERD (gastroesophageal reflux disease) Current Visit: Yes Qualifiers: Esophagitis presence: without esophagitis Qualified Code(s): K21.9 - Gastro -esophageal reflux disease without esophagitis (3) History of atrial fibrillation Current Visit: Yes (4) Kyphoscoliosis deformity of spine Current Visit: Yes (5) Alcohol related seizure Current Visit: No Initial treatment plan: Patient will be discharged tomorrow and referred to [facility] for outpatient treatment
[2018-08-03] MEDS: THIAMINE HCL 100 MG TABLET (FP) PO SCH (21:14)
[2018-08-04 07:05] VITALS: BP 117/78; PULSE 71; TEMP 97.1
[2018-08-04] MEDS: PRENATAL VITAMINS W/ FOLIC ACID TABLET (FP) PO SCH (09:08)
== END 2018-08-04 10:30 | disposition home or self-care (01) | DRG 895 ==
LOC: YASAS 10:40 → Y3E 14:05
PROVIDERS: ADMIT Psychiatry & Neurology Psychiatry; ATTEND Psychiatry & Neurology Psychiatry
PROC: HZ42ZZZ Group Counseling for Substance Abuse Treatment, Cognitive-Behavioral (ICD-10-PCS; principal; 2018-07-21)
DX: F10.20 Alcohol dependence, uncomplicated (principal); Z68.1 Body mass index [BMI] 19.9 or less, adult; F19.24 Other psychoactive substance dependence with psychoactive substance-induced mood disorder; K21.9 Gastro-esophageal reflux disease without esophagitis; M41.9 Scoliosis, unspecified; M12.9 Arthropathy, unspecified; R63.4 Abnormal weight loss; Z86.69 Personal history of other diseases of the nervous system and sense organs; Z86.79 Personal history of other diseases of the circulatory system

== ENCOUNTER 2018-12-05 12:53 | Inpatient (IN) | payer OTHER ==
--- NOTE | 2018-12-05 13:23 | HP ---
CIWA Score Nausea/Vomitin Muscle Tremors: 2 Anxiety: 2 Agitation: 2 Paroxysmal Sweats: 1-Minimal Palms Moist Orientation: 0-Oriented Tacttile Disturbances: 1-Very Mild Itch/Numbness Auditory Disturbances: 1-Very Mild Visual Disturbances: 0-None Headache: 2-Mild CIWA-Ar Total Score: 13 - Admission Criteria OASAS Guidelines: Admission for Medically Managed Detox: Requires at least one of the followin. CIWA greater than 12 2. Seizures within the past 24 hours 3. Delirium tremens within the past 24 hours 4. Hallucinations within the past 24 hours 5. Acute intervention needed for co occurring medical disorder 6. Acute intervention needed for co occurring psychiatric disorder 7. Severe withdrawal that cannot be handled at a lower level of care (continued vomiting, continued diarrhea, abnormal vital signs) requiring intravenous medication and/or fluids 8. Patient presents the following: CIWA greater than 12 Admission Criteria Met: Admission criteria met Admission ROS [facility] - HPI Chief Complaint: i need help to stop drinking alcohol Allergies/Adverse Reactions: Allergies Allergy/AdvReac Type Severity Reaction Status Date / Time No Known Allergies Allergy Verified 12/05/18 14:20 History of Present Illness: this 68 years old female with alcohol dependence,seeking detox,withdrawal symptom, multiple admissions in detox but keep relapsing last detox07/16/18 to 07/20/18 rehab to 08/04/18 rehab weight loss last seizure in 2017 syncope,kyphoscoliosis,history of atrial fibrillation longest sobriety 6 months stated may go to rehab after detox - Ebola screening Have you traveled outside of the country in the last 21 days: No (N) Have you had contact with anyone from an Ebola affected area: No Do you have a fever: No - Review of Systems Constitutional: Loss of Appetite, Malaise, Night Sweats, Changes in sleep, Weakness, Unintentional Wgt. Loss EENT: reports: Tearing, Nose Congestion Respiratory: reports: No Symptoms reported Cardiac: reports: Palpitations GI: reports: Diarrhea, Nausea, Poor Appetite, Abdominal cramping : reports: No Symptoms Reported Musculoskeletal: reports: Back Pain, Muscle Pain, Other (kyphoscoliosis) Integumentary: reports: Dryness Neuro: reports: Headache, Tremors Endocrine: reports: No Symptoms Reported Hematology: reports: No Symptoms Reported Psychiatric: reports: No Sypmtoms Reported, Judgement Intact, Mood/Affect Appropiate, Orientated x3 Other Systems: Reviewed and Negative Patient History - Patient Medical History Hx Anemia: No Hx Asthma: No Hx Chronic Obstructive Pulmonary Disease (COPD): No Hx Cancer: No Hx Cardiac Disorders: Yes (States one episode of AFib, in past, which resolved years ago) Hx Congestive Heart Failure: No Hx Hypertension: No Hx Hypercholesterolemia: No Hx Pacemaker: No HX Cerebrovascular Accident: No Hx Seizures: Yes (alcohol related-last episode was in 2016) Hx Dementia: No Hx Diabetes: No Hx Gastrointestinal Disorders: No Hx Liver Disease: No Hx Genitourinary Disorders: No Hx Sexually Transmitted Disorders: No Hx Renal Disease (ESRD): No Hx Thyroid Disease: No Hx Human Immunodeficiency Virus (HIV): No (2016 last negative) Hx Hepatitis C: No Hx Depression: No Hx Suicide Attempt: No Hx Bipolar Disorder: No Hx Schizophrenia: No Other Medical History: no suicidal,no homicidal - Patient Surgical History Past Surgical History: Yes Hx Neurologic Surgery: No Hx Cataract Extraction: No Hx Cardiac Surgery: No Hx Lung Surgery: No Hx Breast Surgery: No Hx Breast Biopsy: No Hx Abdominal Surgery: No Hx Appendectomy: No Hx Cholecystectomy: No Hx Genitourinary Surgery: No Hx Section: No Hx Orthopedic Surgery: No Other Surgical History: abscess, left Axilla, 05/11/2018/abscess, left 2nd toe in 2017 Anesthesia Reaction: No - PPD History Previous Implant?: Yes Documented Results: Negative w/proof Implanted On Prior [facility] Admission?: Yes Date: 06/13/18 Results: 0mm - Reproductive History Patient is a Female of Child Bearing Age (11 -55 yrs old): Yes Last Menstrual Period: 09/07/12 Patient : No - Smoking Cessation Smoking history: Never smoked Have you smoked in the past 12 months: No Hx Chewing Tobacco Use: No - Substance & Tx. History Hx Alcohol Use: Yes Hx Substance Use: No Substance Use Type: Alcohol Hx Substance Use Treatment: Yes ([facility] 07/16/18 to 07/20/18detox,rehab 07/21/18 to 08/04/18) - Substances Abused Alcohol Route: Oral Frequency: Daily Amount used: 1/2 pint of vodak/8 of 12 ozs of beer Age of first use: 17 Date of Last Use: 12/04/18 Family Disease History - Family Disease History Family Disease History: Other: Father (alcohol,), Mother (alcohol, ) Admission Physical Exam [facility] - Vital Signs Vital Signs: Vital Signs Temperature 97.7 F 12/06/18 07:42 Pulse Rate 83 12/06/18 07:42 Respiratory Rate 16 12/06/18 07:42 Blood Pressure 127/71 12/06/18 07:42 O2 Sat by Pulse Oximetry (%) - Physical General Appearance: Yes: Moderate Distress, Tremorous, Irritable, Sweating, Anxious HEENTM: Yes: Normal ENT Inspection, JIE, Pharynx Normal Respiratory: Yes: Lungs Clear, Normal Breath Sounds, No Respiratory Distress Neck: Yes: Within Normal Limits, Supple, Trachea in good position Breast: Yes: Breast Exam Deferred Cardiology: Yes: Tachycardia Abdominal: Yes: Within Normal Limits, Normal Bowel Sounds, Non Tender, Soft Genitourinary: Yes: Within Normal Limits Back: Yes: Muscle Spasm Musculoskeletal: Yes: Back pain, Muscle Pain Extremities: Yes: Tremors 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, Fully Oriented, Alert, Motor Strength 5/5 Integumentary: Yes: Dry Lymphatic: Yes: Within Normal Limits - Diagnostic (1) Alcohol dependence with uncomplicated withdrawal Current Visit: Yes Status: Acute (2) Alcohol related seizure Current Visit: No Status: Acute (3) Weight loss Current Visit: No Status: Acute (4) History of atrial fibrillation Current Visit: No Status: Chronic (5) Kyphoscoliosis deformity of spine Current Visit: No Status: Chronic (6) Syncope Current Visit: No Status: Chronic Cleared for Admission [facility] - Detox or Rehab [facility] Level of Care: Medically Managed Detox Regimen/Protocol: Librium [facility] Breath Alcohol Content Breath Alcohol Content: 0 Inpatient Rehab Admission - Rehab Decision to Admit Inpatient rehab admission?: No
[2018-12-05] MEDS ORDERED: ACETAMINOPHEN 325 MG TABLET (FP) PO PRN (13:41)
[2018-12-05] MEDS ORDERED: P-EPHED 60MG/TRIPROLIDI 2.5MG TABLET PO PRN (13:41)
[2018-12-05] MEDS ORDERED: chlordiazePOXIDE HCL 25 MG CAPSULE PO PRN (13:41)
[2018-12-05] MEDS ORDERED: LOPERAMIDE HCL 2 MG CAPSULE PO PRN (13:41)
[2018-12-05] MEDS ORDERED: guaiFENesin/D-METHORPHAN HB 10 ML UNIT-DOSE CUPS PO PRN (13:41)
[2018-12-05] MEDS ORDERED: MAGNESIUM CITRATE 300 ML BOTTLE PO PRN (13:41)
[2018-12-05] MEDS ORDERED: MAGNESIUM HYDROX 2400MG/30ML ORAL SUSPENSION 30 ML CUP PO PRN (13:41)
[2018-12-05] MEDS ORDERED: MENTHOL/PHENOL 1 EACH UD MM PRN (13:41)
[2018-12-05] MEDS ORDERED: MAG HYDROX/AL HYDROX/SIMETH 30 ML UNIT-DOSE CUP PO PRN (13:41)
[2018-12-05] MEDS ORDERED: IBUPROFEN 400 MG TABLET (FP) PO PRN (13:41)
[2018-12-05 13:52] VITALS: BMI 17.6
[2018-12-05] MEDS ORDERED: chlordiazePOXIDE HCL 25 MG CAPSULE PO SCH (17:00)
[2018-12-05] MEDS: chlordiazePOXIDE 5 MG CAPSULE PO SCH ×2 (17:22→22:17)
[2018-12-05] MEDS: THIAMINE HCL 100 MG TABLET (FP) PO SCH (22:15)
[2018-12-06] MEDS: MELATONIN 5 MG TABLETS PO PRN ×2 (01:11→22:20)
[2018-12-06] MEDS: chlordiazePOXIDE 5 MG CAPSULE PO SCH (05:35)
[2018-12-06] MEDS ORDERED: chlordiazePOXIDE HCL 25 MG CAPSULE PO SCH (08:47)
[2018-12-06] MEDS: PRENATAL VITAMINS W/ FOLIC ACID TABLET (FP) PO SCH (10:29)
[2018-12-06 10:46] LABS: HEMATOCRIT 37.3 % (32.4-45.2); MCH 33.4 pg (25.7-33.7); MEAN CELL VOLUME 95.6 fl (80-96); PLATELET COUNT 201 K/MM3 (134-434); RDW 16.3 % (11.6-15.6); WHITE BLOOD COUNT 3.6 K/mm3 (4.0-10.0)
[2018-12-06 10:59] LABS: ALBUMIN 3.7 g/dl (3.4-5.0); ALK PHOS 91 U/L (45-117); ANION GAP 7 MMOL/L (8-16); BILIRUBIN,TOTAL 0.8 mg/dL (0.2-1); BLOOD UREA NITROGEN 6 mg/dL (7-18); CHLORIDE 96 mmol/L (98-107); CO2 29 mmol/L (21-32); CREATININE 0.5 mg/dL (0.55-1.3); GLUCOSE,RANDOM 85 mg/dL (74-106); POTASSIUM 4.5 mmol/L (3.5-5.1); SGOT/AST 37 U/L (15-37); SGPT/ALT 32 U/L (13-61); SODIUM 133 mmol/L (136-145); TOT PROT 7.3 g/dl (6.4-8.2)
--- NOTE | 2018-12-06 15:55 | PN ---
S CIWA - CIWA Score Nausea/Vomitin Muscle Tremors: 4-Moderate,w/Arms Extend Anxiety: 4-Mod. Anxious/Guarded Agitation: 4-Moderately Restless Paroxysmal Sweats: 3 Orientation: 0-Oriented Tacttile Disturbances: 0-None Auditory Disturbances: 0-None Visual Disturbances: 0-None Headache: 0-None Present CIWA-Ar Total Score: 17 BHS Progress Note (SOAP) Subjective: Tremor, chills, sweating, diarrhea. Objective: 12/06/18 15:54 Last Vital Signs Temp Pulse Resp BP Pulse Ox 96.8 F L 103 H 18 122/77 12/06/18 10:00 12/06/18 10:00 12/06/18 10:00 12/06/18 10:00 Laboratory Tests 12/06/18 12/06/18 12/06/18 07:35 07:35 07:35 WBC 3.6 L RBC 3.90 Hgb 13.0 Hct 37.3 MCV 95.6 MCH 33.4 MCHC 35.0 RDW 16.3 H Plt Count 201 D MPV 8.0 Sodium 133 L Potassium 4.5 Chloride 96 L Carbon Dioxide 29 Anion Gap 7 L BUN 6 L Creatinine 0.5 L Creat Clearance w eGFR > 60 Random Glucose 85 Calcium 9.0 Total Bilirubin 0.8 AST 37 ALT 32 Alkaline Phosphatase 91 Total Protein 7.3 Albumin 3.7 RPR Titer Nonreactive HIV 1&2 Antibody Screen HIV P24 Antigen 12/06/18 07:35 WBC RBC Hgb Hct MCV MCH MCHC RDW Plt Count MPV Sodium Potassium Chloride Carbon Dioxide Anion Gap BUN Creatinine Creat Clearance w eGFR Random Glucose Calcium Total Bilirubin AST ALT Alkaline Phosphatase Total Protein Albumin RPR Titer HIV 1&2 Antibody Screen Negative HIV P24 Antigen Negative Labs reviewed Assessment: 12/06/18 15:54 Withdrawal symptoms Plan: Continue detox Encouraged PO water hydration
[2018-12-06] MEDS: chlordiazePOXIDE HCL 25 MG CAPSULE PO SCH ×2 (17:18→22:20)
[2018-12-06] MEDS: THIAMINE HCL 100 MG TABLET (FP) PO SCH (22:20)
[2018-12-07] MEDS: chlordiazePOXIDE HCL 25 MG CAPSULE PO SCH ×2 (05:51→10:13)
[2018-12-07] MEDS: PRENATAL VITAMINS W/ FOLIC ACID TABLET (FP) PO SCH (10:13)
--- NOTE | 2018-12-07 11:08 | EKG ---
Test Reason : Blood Pressure : / mmHG Vent. Rate : 089 BPM Atrial Rate : 089 BPM P-R Int : 152 ms QRS Dur : 072 ms QT Int : 370 ms P-R-T Axes : 057 078 069 degrees QTc Int : 450 ms NORMAL SINUS RHYTHM NORMAL ECG WHEN COMPARED WITH ECG OF 11-JUN-2018 17:46, NO SIGNIFICANT CHANGE WAS FOUND Confirmed by SHADI WILHELM MD ([id number]) on 12/07/2018 11:08:19 AM Referred By: Confirmed By:SHADI WILHELM MD
--- NOTE | 2018-12-07 11:35 | PN ---
[facility] CIWA - CIWA Score Nausea/Vomitin-No Nausea/No Vomiting Muscle Tremors: 3 Anxiety: 3 Agitation: 3 Paroxysmal Sweats: 3 Orientation: 0-Oriented Tacttile Disturbances: 0-None Auditory Disturbances: 0-None Visual Disturbances: 0-None Headache: 0-None Present CIWA-Ar Total Score: 12 S Progress Note (SOAP) Subjective: sweats shakes interrupted sleep body aches i need my ABX for my toothache ordered for me Objective: 12/07/18 11:32 Vital Signs Temperature 97.8 F 12/07/18 09:34 Pulse Rate 101 H 12/07/18 09:34 Respiratory Rate 20 12/07/18 09:34 Blood Pressure 139/75 12/07/18 09:34 O2 Sat by Pulse Oximetry (%) Laboratory Tests 12/06/18 12/06/18 12/06/18 07:35 07:35 07:35 WBC 3.6 L RBC 3.90 Hgb 13.0 Hct 37.3 MCV 95.6 MCH 33.4 MCHC 35.0 RDW 16.3 H Plt Count 201 D MPV 8.0 Sodium 133 L Potassium 4.5 Chloride 96 L Carbon Dioxide 29 Anion Gap 7 L BUN 6 L Creatinine 0.5 L Creat Clearance w eGFR > 60 Random Glucose 85 Calcium 9.0 Total Bilirubin 0.8 AST 37 ALT 32 Alkaline Phosphatase 91 Total Protein 7.3 Albumin 3.7 RPR Titer Nonreactive HIV 1&2 Antibody Screen HIV P24 Antigen 12/06/18 07:35 WBC RBC Hgb Hct MCV MCH MCHC RDW Plt Count MPV Sodium Potassium Chloride Carbon Dioxide Anion Gap BUN Creatinine Creat Clearance w eGFR Random Glucose Calcium Total Bilirubin AST ALT Alkaline Phosphatase Total Protein Albumin RPR Titer HIV 1&2 Antibody Screen Negative HIV P24 Antigen Negative aaox3 ambulating no acute distress Assessment: 12/07/18 11:33 withdrawal sx Plan: continue detox increase fluids will order abx
[2018-12-07] MEDS ORDERED: IBUPROFEN 400 MG TABLET (FP) PO PRN (14:27)
[2018-12-07] MEDS: AMOX TR/POT CLAV 875MG/125MG TABLETS (FP) PO SCH (17:27)
[2018-12-07] MEDS: chlordiazePOXIDE 5 MG CAPSULE PO SCH ×2 (17:27→22:03)
[2018-12-07] MEDS: THIAMINE HCL 100 MG TABLET (FP) PO SCH (21:41)
[2018-12-08] MEDS: chlordiazePOXIDE 5 MG CAPSULE PO SCH ×2 (05:26→10:06)
--- NOTE | 2018-12-08 09:13 | PN ---
BHS Progress Note (SOAP) Subjective: feeling better little sweats Objective: 12/08/18 09:11 Vital Signs Temperature 96.4 F L 12/08/18 06:00 Pulse Rate 89 12/08/18 06:00 Respiratory Rate 16 12/08/18 06:00 Blood Pressure 151/91 12/08/18 06:00 O2 Sat by Pulse Oximetry (%) aaox3 ambulating no acute distress Assessment: 12/08/18 09:11 mild withdrawal sx Plan: continue detox increase fluids send Rx (ABX) to pharmacy d/c in am
[2018-12-08] MEDS: AMOX TR/POT CLAV 875MG/125MG TABLETS (FP) PO SCH ×2 (10:06→17:18)
[2018-12-08] MEDS: PRENATAL VITAMINS W/ FOLIC ACID TABLET (FP) PO SCH (10:06)
[2018-12-08 10:22] LABS: URINE APPEARANCE CLEAR; URINE BILIRUBIN NEGATIVE (<2.0 mg/dL); URINE COLOR YELLOW; URINE GLUCOSE (UA) NEGATIVE (NEGATIVE); URINE KETONE NEGATIVE (NEGATIVE); URINE LEUK ESTERASE NEGATIVE (NEGATIVE); URINE NITRITE NEGATIVE (NEGATIVE); URINE PROTEIN NEGATIVE (NEGATIVE); URINE UROBILINOGEN NEGATIVE mg/dL (0.2-1.0)
[2018-12-08] MEDS: chlordiazePOXIDE HCL 10 MG CAPSULE PO SCH ×2 (17:18→22:19)
[2018-12-08] MEDS: THIAMINE HCL 100 MG TABLET (FP) PO SCH (22:19)
[2018-12-09] MEDS: chlordiazePOXIDE HCL 10 MG CAPSULE PO SCH (06:22)
[2018-12-09] MEDS: AMOX TR/POT CLAV 875MG/125MG TABLETS (FP) PO SCH (07:54)
[2018-12-09 09:33] VITALS: BP 127/72; PULSE 97; TEMP 96.1
--- NOTE | 2018-12-09 09:47 | DS ---
[facility] Detox Discharge Summary Admission Date: 12/05/18 Discharge Date: 12/09/18 - History Present History: Alcohol Dependence - Physical Exam Results Vital Signs: Vital Signs Temperature 96.1 F L 12/09/18 09:32 Pulse Rate 97 H 12/09/18 09:32 Respiratory Rate 16 12/09/18 09:32 Blood Pressure 127/72 12/09/18 09:32 O2 Sat by Pulse Oximetry (%) - Treatment Hospital Course: Detox Protocol Followed, Detoxed Safely, Responded well, Discharged Condition Good, Rehab Referral Accepted - Medication Discharge Medications: Ambulatory Orders NK [No Known Home Medication] 07/16/18 - Diagnosis (1) Alcohol dependence with uncomplicated withdrawal Current Visit: Yes Status: Chronic (2) GERD (gastroesophageal reflux disease) Current Visit: Yes Status: Chronic Qualifiers: Esophagitis presence: without esophagitis Qualified Code(s): K21.9 - Gastro -esophageal reflux disease without esophagitis (3) History of atrial fibrillation Current Visit: No Status: Chronic (4) Kyphoscoliosis deformity of spine Current Visit: Yes Status: Chronic (5) Seizure Current Visit: Yes Status: Chronic Qualifiers: Convulsion type: unspecified Qualified Code(s): R56.9 - Unspecified convulsions (6) Tooth infection Current Visit: Yes Status: Acute - AMA Did Patient Leave Against Medical Advice: No (referred to out patient)
== END 2018-12-09 09:38 | disposition home or self-care (01) | DRG 897 ==
LOC: YASAS 12:53 → Y6N 14:23
PROVIDERS: ADMIT Surgery; ATTEND Surgery
PROC: HZ2ZZZZ Detoxification Services for Substance Abuse Treatment (ICD-10-PCS; principal; 2018-12-05)
DX: F10.230 Alcohol dependence with withdrawal, uncomplicated (principal); K21.9 Gastro-esophageal reflux disease without esophagitis; M41.9 Scoliosis, unspecified; K04.7 Periapical abscess without sinus; Z86.69 Personal history of other diseases of the nervous system and sense organs
CPT/HCPCS: 36415; 80053; 81003; 85027; 86593; 87389; 93005; 93010

== ENCOUNTER 2019-06-21 18:00 | Inpatient (IN) | payer OTHER ==
[2019-06-21 18:35] VITALS: BMI 17.2
--- NOTE | 2019-06-21 20:24 | HP ---
CIWA Score Nausea/Vomitin-No Nausea/No Vomiting Muscle Tremors: 4-Moderate,w/Arms Extend Anxiety: 4-Mod. Anxious/Guarded Agitation: 4-Moderately Restless Paroxysmal Sweats: 3 Orientation: 2-Disoriented Date<2 days Tacttile Disturbances: 2-Mild Itch/Numbness/Burn Auditory Disturbances: 0-None Visual Disturbances: 0-None Headache: 0-None Present CIWA-Ar Total Score: 19 - Admission Criteria OAS Guidelines: Admission for Medically Managed Detox: Requires at least one of the followin. CIWA greater than 12 2. Seizures within the past 24 hours 3. Delirium tremens within the past 24 hours 4. Hallucinations within the past 24 hours 5. Acute intervention needed for co occurring medical disorder 6. Acute intervention needed for co occurring psychiatric disorder 7. Severe withdrawal that cannot be handled at a lower level of care (continued vomiting, continued diarrhea, abnormal vital signs) requiring intravenous medication and/or fluids 8. Patient presents the following: CIWA greater than 12 Admission Criteria Met: Admission criteria met Admission ROS [facility] Chief Complaint: C/O WITHDRAWAL SX'S Allergies/Adverse Reactions: Allergies Allergy/AdvReac Type Severity Reaction Status Date / Time No Known Allergies Allergy Verified 06/21/19 18:26 History of Present Illness: 69 Y.O. MALE WITH ALCOHOLISM HERE FOR DETOX. CLIENT IS SELF REFERRED. KNOWN TO THE PROGRAM LAST HERE 6 MONTHS AGO. SHE PRESENTS WITH C/O WITHDRAWAL SX'S. 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 LAST USE EARLY THIS MORNING TO HELP WITH WITHDRAWAL SX'S. UTOX + FOR BENZO DENIES RECENT DETOX OR DRUG USE. REPORTS HX/O WITHDRAWAL SZ. DOES NOT RECALL LAST EPISODE. SHE ALSO REPORTS A HX/O AFIB BUT DENIES COUMADIN MGMT. SHE IS HOMELESS, LIVING FROM ONE PLACE TO PLACE, PENITENTIARY BENEFITS, DENIES LEGALS. Exam Limitations: Intoxication - Ebola screening Have you traveled outside of the country in the last 21 days: No (N) Have you had contact with anyone from an Ebola affected area: No Do you have a fever: No - Review of Systems Constitutional: Chills, Loss of Appetite, Night Sweats, Unintentional Wgt. Loss EENT: reports: Dental Problems Respiratory: reports: No Symptoms reported Cardiac: reports: No Symptoms Reported GI: reports: Nausea, Poor Appetite, Poor Fluid Intake, Abdominal cramping : reports: No Symptoms Reported Musculoskeletal: reports: Back Pain (CHRONIC) Integumentary: reports: Sweating Neuro: reports: Seizure (R/T WITHDRAWAL), Tremors Endocrine: reports: No Symptoms Reported Hematology: reports: No Symptoms Reported Psychiatric: reports: Agitated (IRRITABLE), Anxious, Depressed (DENIES SI/HI) Other Systems: Reviewed and Negative Patient History - Patient Medical History Hx Anemia: No Hx Asthma: No Hx Chronic Obstructive Pulmonary Disease (COPD): No Hx Cancer: No Hx Cardiac Disorders: Yes (States one episode of AFib, in past, which resolved years ago) Hx Congestive Heart Failure: No Hx Hypertension: No Hx Hypercholesterolemia: No Hx Pacemaker: No HX Cerebrovascular Accident: No Hx Seizures: Yes (alcohol related-last episode was in 2016) Hx Dementia: No Hx Diabetes: No Hx Gastrointestinal Disorders: No Hx Liver Disease: No Hx Genitourinary Disorders: No Hx Sexually Transmitted Disorders: No Hx Renal Disease (ESRD): No Hx Thyroid Disease: No Hx Human Immunodeficiency Virus (HIV): No (2016 last negative) Hx Hepatitis C: No Hx Depression: No Hx Suicide Attempt: No Hx Bipolar Disorder: No Hx Schizophrenia: No Other Medical History: OSTEOARTHRITIS - Patient Surgical History Past Surgical History: Yes Hx Neurologic Surgery: No Hx Cataract Extraction: No Hx Cardiac Surgery: No Hx Lung Surgery: No Hx Breast Surgery: No Hx Breast Biopsy: No Hx Abdominal Surgery: No Hx Appendectomy: No Hx Cholecystectomy: No Hx Genitourinary Surgery: No Hx Section: No Hx Orthopedic Surgery: No Other Surgical History: abscess, left Axilla, 05/11/2018/abscess, left 2nd toe in 2017 Anesthesia Reaction: No - PPD History Previous Implant?: Yes Documented Results: Negative w/proof Implanted On Prior [facility] Admission?: Yes Date: 06/13/18 Results: 0mm PPD to be Administered?: No - Reproductive History Patient is a Female of Child Bearing Age (11 -55 yrs old): No Last Menstrual Period: 09/07/12 - Smoking Cessation Smoking history: Never smoked Have you smoked in the past 12 months: No Hx Chewing Tobacco Use: No Initiated information on smoking cessation: No - Substance & Tx. History Hx Alcohol Use: Yes Hx Substance Use: No Substance Use Type: Alcohol Hx Substance Use Treatment: Yes ([facility]) - Substances abused Alcohol Substance route: Oral Frequency: Daily Amount used: 8 crazy stallions, banana shots Age of first use: 17 Date of last use: 06/21/19 Family Disease History - Family Disease History Family Disease History: Other: Father (alcohol,), Mother (alcohol, ) Admission Physical Exam [facility] - Vital Signs Vital Signs: Vital Signs - 24 hr 06/21/19 18:28 Temperature 97.4 F L Pulse Rate 79 Respiratory 16 Rate Blood Pressure 92/64 - Physical General Appearance: Yes: Moderate Distress, Intoxicated, Tremorous, Irritable, Sweating, Anxious HEENTM: Yes: EOMI (DIFFICULTY BUT ABLE TO COMPLETE), Normocephalic, Normal Voice , JIE, Pharynx Normal, Other (MISSING TEETH, POOR DENTITION) Respiratory: Yes: Chest Non-Tender, Lungs Clear, Normal Breath Sounds, No Respiratory Distress, No Accessory Muscle Use Neck: Yes: No masses,lesions,Nodules, Supple, Trachea in good position Breast: Yes: Breast Exam Deferred Cardiology: Yes: Regular Rhythm, Regular Rate, S1, S2 Abdominal: Yes: Normal Bowel Sounds, Non Tender, Soft Genitourinary: Yes: Within Normal Limits Back: Yes: Normal Inspection Musculoskeletal: Yes: Back pain (CHRONIC WITH KYPHOSIS), Joint Stiffness Extremities: Yes: Normal Range of Motion, Non-Tender, Tremors Neurological: Yes: Fully Oriented, Alert, Motor Strength 5/5, Depressed Affect Integumentary: Yes: Warm, Moist Lymphatic: Yes: Within Normal Limits - Diagnostic (1) Alcohol withdrawal seizure Current Visit: Yes Status: Suspected Qualifiers: Complication of substance-induced condition: uncomplicated Qualified Code(s ): F10.230 - Alcohol dependence with withdrawal, uncomplicated Comment: REPORTED HX (2) Alcohol dependence with uncomplicated withdrawal Current Visit: Yes Status: Acute (3) GERD (gastroesophageal reflux disease) Current Visit: Yes Status: Chronic Qualifiers: Esophagitis presence: without esophagitis Qualified Code(s): K21.9 - Gastro -esophageal reflux disease without esophagitis (4) History of atrial fibrillation Current Visit: Yes Status: Suspected Comment: REPORTED HX/O W/O MGMT (5) Kyphoscoliosis deformity of spine Current Visit: Yes Status: Chronic Cleared for Admission [facility] - Detox or Rehab [facility] Level of Care: Medically Managed Detox Regimen/Protocol: Librium Claeared for Rehab Admission: No Breathalyzer - Breathalyzer Breathalyzer: 0 Urine Drug Screen - Test Device Lot number: [id number] Expiration date: 03/05/21 - Control Is test valid?: Yes - Results Drug screen NEGATIVE: Yes Urine drug screen results: BZO-Benzodiazepines Inpatient Rehab Admission - Rehab Decision to Admit Inpatient rehab admission?: No
[2019-06-21] MEDS ORDERED: MAGNESIUM CITRATE 300 ML BOTTLE PO PRN (20:27)
[2019-06-21] MEDS ORDERED: ACETAMINOPHEN 325 MG TABLET (FP) PO PRN ×2 (20:27)
[2019-06-21] MEDS ORDERED: BISMUTH SUBSALICYLATE 524 MG/30 ML UD PO PRN (20:27)
[2019-06-21] MEDS ORDERED: ONDANSETRON *ODT* 4 MG TABLET SL PRN (20:27)
[2019-06-21] MEDS ORDERED: IBUPROFEN 400 MG TABLET (FP) PO PRN (20:27)
[2019-06-21] MEDS ORDERED: guaiFENesin 200 MG/10 ML 10 ML UNIT-DOSE CUPS PO PRN (20:27)
[2019-06-21] MEDS ORDERED: MENTHOL/PHENOL 1 EACH UD MM PRN (20:27)
[2019-06-21] MEDS ORDERED: DICYCLOMINE HCL 10 MG CAPSULE PO PRN (20:27)
[2019-06-21] MEDS ORDERED: P-EPHED 60MG/TRIPROLIDI 2.5MG TABLET PO PRN (20:27)
[2019-06-21] MEDS ORDERED: MAGNESIUM HYDROX 2400MG/30ML ORAL SUSPENSION 30 ML CUP PO PRN (20:27)
[2019-06-21] MEDS ORDERED: MAG HYDROX/AL HYDROX/SIMETH 30 ML UNIT-DOSE CUP PO PRN (20:27)
[2019-06-21] MEDS ORDERED: chlordiazePOXIDE HCL 25 MG CAPSULE PO PRN (20:27)
[2019-06-21] MEDS ORDERED: hydrOXYzine PAMOATE 25 MG CAPSULE (FP) PO PRN (20:27)
[2019-06-21] MEDS: chlordiazePOXIDE HCL 25 MG CAPSULE PO SCH (22:33)
[2019-06-21] MEDS: THIAMINE HCL 100 MG TABLET (FP) PO SCH (22:34)
[2019-06-22] MEDS: chlordiazePOXIDE HCL 25 MG CAPSULE PO SCH ×4 (05:49→22:23)
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
[2019-06-22 09:58] LABS: HEMATOCRIT 34.6 % (32.4-45.2); HEMOGLOBIN 11.8 GM/dL (10.7-15.3); MCH 33.9 pg (25.7-33.7); MCHC 34.2 g/dl (32.0-36.0); MEAN CELL VOLUME 99.1 fl (80-96); MEAN PLT VOLUME 7.4 fl (7.5-11.1); PLATELET COUNT 186 K/MM3 (134-434); RBC 3.49 M/mm3 (3.60-5.2); RDW 15.3 % (11.6-15.6)
--- NOTE | 2019-06-22 10:10 | EKG ---
Test Reason : Blood Pressure : / mmHG Vent. Rate : 089 BPM Atrial Rate : 089 BPM P-R Int : 162 ms QRS Dur : 078 ms QT Int : 368 ms P-R-T Axes : 070 085 058 degrees QTc Int : 447 ms NORMAL SINUS RHYTHM NORMAL ECG WHEN COMPARED WITH ECG OF 05-DEC-2018 15:53, NO SIGNIFICANT CHANGE WAS FOUND Confirmed by MD Eleanor, Asa ([id number]) on 06/22/2019 10:09:31 AM Referred By: Marylin Goldberg Confirmed By:Asa Webster MD
[2019-06-22] MEDS: PRENATAL VITAMINS W/ FOLIC ACID TABLET (FP) PO SCH (10:13)
[2019-06-22 10:17] LABS: ALBUMIN 3.6 g/dl (3.4-5.0); BILIRUBIN,TOTAL 1.1 mg/dL (0.2-1); BLOOD UREA NITROGEN 8.8 mg/dL (7-18); CREATININE 0.5 mg/dL (0.55-1.3); POTASSIUM 4.9 mmol/L (3.5-5.1); TOT PROT 6.8 g/dl (6.4-8.2)
[2019-06-22 12:19] LABS: PH,URINE 6.5 (5.0-8.0); URINE APPEARANCE CLEAR; URINE BILIRUBIN NEGATIVE (NEGATIVE); URINE COLOR YELLOW; URINE GLUCOSE (UA) NEGATIVE (NEGATIVE); URINE KETONE NEGATIVE (NEGATIVE); URINE LEUK ESTERASE NEGATIVE (NEGATIVE); URINE NITRITE NEGATIVE (NEGATIVE); URINE PROTEIN NEGATIVE (NEGATIVE); URINE UROBILINOGEN 0.2 mg/dL (0.2-1.0)
--- NOTE | 2019-06-22 12:29 | PN ---
S CIWA - CIWA Score Nausea/Vomitin-No Nausea/No Vomiting Muscle Tremors: 3 Anxiety: 3 Agitation: 4-Moderately Restless Paroxysmal Sweats: 3 Orientation: 0-Oriented Tacttile Disturbances: 0-None Auditory Disturbances: 0-None Visual Disturbances: 0-None Headache: 0-None Present CIWA-Ar Total Score: 13 BHS Progress Note (SOAP) Subjective: sweats shakes restless agitation Objective: 06/22/19 12:27 Vital Signs Temperature 97.7 F 06/22/19 09:24 Pulse Rate 89 06/22/19 09:24 Respiratory Rate 16 06/22/19 09:24 Blood Pressure 128/75 06/22/19 09:24 O2 Sat by Pulse Oximetry (%) Laboratory Tests 06/22/19 06/22/19 06/22/19 08:00 08:00 09:00 WBC 3.0 L RBC 3.49 L Hgb 11.8 Hct 34.6 MCV 99.1 H MCH 33.9 H MCHC 34.2 RDW 15.3 Plt Count 186 MPV 7.4 L Sodium 133 L Potassium 4.9 Chloride 97 L Carbon Dioxide 29 Anion Gap 6 L BUN 8.8 Creatinine 0.5 L Est GFR (CKD-EPI)AfAm 114.45 Est GFR (CKD-EPI)NonAf 98.75 Random Glucose 62 L Calcium 9.0 Total Bilirubin 1.1 H AST 133 H ALT 91 H Alkaline Phosphatase 82 Total Protein 6.8 Albumin 3.6 Urine Color Yellow Urine Appearance Clear Urine pH 6.5 Ur Specific [place] 1.004 L Urine Protein Negative Urine Glucose (UA) Negative Urine Ketones Negative Urine Blood Negative Urine Nitrite Negative Urine Bilirubin Negative Urine Urobilinogen 0.2 Ur Leukocyte Esterase Negative labs noted aaox3 ambulating no acute distress Assessment: 06/22/19 12:28 withdrawal sx Plan: continue detox increase fluids
[2019-06-22] MEDS: THIAMINE HCL 100 MG TABLET (FP) PO SCH (22:22)
[2019-06-22] MEDS: METHOCARBAMOL 500 MG TABLET PO PRN (22:23)
[2019-06-23] MEDS: chlordiazePOXIDE HCL 25 MG CAPSULE PO SCH ×4 (07:44→22:11)
[2019-06-23] MEDS: PRENATAL VITAMINS W/ FOLIC ACID TABLET (FP) PO SCH (10:12)
--- NOTE | 2019-06-23 12:13 | PN ---
[facility] CIWA - CIWA Score Nausea/Vomitin-No Nausea/No Vomiting Muscle Tremors: 3 Anxiety: 2 Agitation: 2 Paroxysmal Sweats: No Perspiration Orientation: 0-Oriented Tacttile Disturbances: 0-None Auditory Disturbances: 0-None Visual Disturbances: 0-None Headache: 0-None Present CIWA-Ar Total Score: 7 BHS Progress Note (SOAP) Subjective: sweats irritable agitation Objective: 06/23/19 12:12 Vital Signs Temperature 97 F L 06/23/19 09:26 Pulse Rate 90 06/23/19 09:26 Respiratory Rate 16 06/23/19 09:26 Blood Pressure 136/76 06/23/19 09:26 O2 Sat by Pulse Oximetry (%) Laboratory Tests 06/22/19 06/22/19 06/22/19 08:00 08:00 08:00 WBC 3.0 L RBC 3.49 L Hgb 11.8 Hct 34.6 MCV 99.1 H MCH 33.9 H MCHC 34.2 RDW 15.3 Plt Count 186 MPV 7.4 L Sodium 133 L Potassium 4.9 Chloride 97 L Carbon Dioxide 29 Anion Gap 6 L BUN 8.8 Creatinine 0.5 L Est GFR (CKD-EPI)AfAm 114.45 Est GFR (CKD-EPI)NonAf 98.75 Random Glucose 62 L Calcium 9.0 Total Bilirubin 1.1 H AST 133 H ALT 91 H Alkaline Phosphatase 82 Total Protein 6.8 Albumin 3.6 Urine Color Urine Appearance Urine pH Ur Specific [place] Urine Protein Urine Glucose (UA) Urine Ketones Urine Blood Urine Nitrite Urine Bilirubin Urine Urobilinogen Ur Leukocyte Esterase RPR Titer Nonreactive 06/22/19 09:00 WBC RBC Hgb Hct MCV MCH MCHC RDW Plt Count MPV Sodium Potassium Chloride Carbon Dioxide Anion Gap BUN Creatinine Est GFR (CKD-EPI)AfAm Est GFR (CKD-EPI)NonAf Random Glucose Calcium Total Bilirubin AST ALT Alkaline Phosphatase Total Protein Albumin Urine Color Yellow Urine Appearance Clear Urine pH 6.5 Ur Specific [place] 1.004 L Urine Protein Negative Urine Glucose (UA) Negative Urine Ketones Negative Urine Blood Negative Urine Nitrite Negative Urine Bilirubin Negative Urine Urobilinogen 0.2 Ur Leukocyte Esterase Negative RPR Titer aaox3 labs noted mildly elevated liver enzymes repeat labs ambulating no acute distress Assessment: 06/23/19 12:13 withdrawal Plan: continue detox increase fluids repeat liver enzymes cane ordered to assist with ambulating
[2019-06-23] MEDS: THIAMINE HCL 100 MG TABLET (FP) PO SCH (22:10)
[2019-06-23] MEDS: METHOCARBAMOL 500 MG TABLET PO PRN (22:11)
[2019-06-24] MEDS ORDERED: chlordiazePOXIDE HCL 10 MG CAPSULE PO PRN
[2019-06-24] MEDS: chlordiazePOXIDE HCL 10 MG CAPSULE PO SCH ×4 (06:08→22:37)
[2019-06-24] MEDS: PRENATAL VITAMINS W/ FOLIC ACID TABLET (FP) PO SCH (10:30)
[2019-06-24 11:35] LABS: BASO % 0.3 % (0-2.0); EOS % 1.7 % (0-4.5); HEMATOCRIT 37.2 % (32.4-45.2); HEMOGLOBIN 12.6 GM/dL (10.7-15.3); LYMPH % 18.4 % (8-40); MCH 33.9 pg (25.7-33.7); MEAN CELL VOLUME 99.8 fl (80-96); MEAN PLT VOLUME 7.7 fl (7.5-11.1); MONO % 12.3 % (3.8-10.2); NEUT % 67.3 % (42.8-82.8); PLATELET COUNT 214 K/MM3 (134-434); RBC 3.72 M/mm3 (3.60-5.2); RDW 15.5 % (11.6-15.6); WHITE BLOOD COUNT 4.1 K/mm3 (4.0-10.0)
[2019-06-24 11:36] LABS: BILIRUBIN,TOTAL 0.5 mg/dL (0.2-1); BLOOD UREA NITROGEN 9.8 mg/dL (7-18); CALCIUM 9.8 mg/dL (8.5-10.1); CREATININE 0.5 mg/dL (0.55-1.3); POTASSIUM 4.7 mmol/L (3.5-5.1); TOT PROT 7.4 g/dl (6.4-8.2)
--- NOTE | 2019-06-24 13:07 | PN ---
S CIWA - CIWA Score Nausea/Vomitin-Mild Nausea/No Vomiting Muscle Tremors: 1-None Visible, but [place] Anxiety: 2 Agitation: 2 Paroxysmal Sweats: No Perspiration Orientation: 0-Oriented Tacttile Disturbances: 0-None Auditory Disturbances: 0-None Visual Disturbances: 0-None Headache: 1-Very Mild CIWA-Ar Total Score: 7 S Progress Note (SOAP) Subjective: alert,irritable,anxious,interrupted sleep Objective: 06/24/19 13:05 Vital Signs Temperature 96 F L 06/24/19 09:26 Pulse Rate 86 06/24/19 09:26 Respiratory Rate 16 06/24/19 09:26 Blood Pressure 137/88 06/24/19 09:26 O2 Sat by Pulse Oximetry (%) 06/24/19 13:06 Laboratory Results - last 24 hr 06/24/19 06/24/19 07:50 08:00 WBC 4.1 RBC 3.72 Hgb 12.6 Hct 37.2 MCV 99.8 H MCH 33.9 H MCHC 34.0 RDW 15.5 Plt Count 214 MPV 7.7 Absolute Neuts (auto) 2.8 Neutrophils % 67.3 Lymphocytes % 18.4 D Monocytes % 12.3 H Eosinophils % 1.7 Basophils % 0.3 Nucleated RBC % 0 Sodium 136 Potassium 4.7 Chloride 99 Carbon Dioxide 30 Anion Gap 6 L BUN 9.8 Creatinine 0.5 L Est GFR (CKD-EPI)AfAm 114.45 Est GFR (CKD-EPI)NonAf 98.75 Random Glucose 78 Calcium 9.8 Total Bilirubin 0.5 AST 54 H ALT 63 H Alkaline Phosphatase 76 Total Protein 7.4 Albumin 4.0 Assessment: 06/24/19 13:06 withdrawal symptom Plan: continue detox,librium regimen
[2019-06-24] MEDS: THIAMINE HCL 100 MG TABLET (FP) PO SCH (22:19)
[2019-06-24] MEDS: MELATONIN 5 MG TABLETS PO PRN (22:19)
[2019-06-25] MEDS: chlordiazePOXIDE HCL 10 MG CAPSULE PO SCH ×2 (06:38→17:55)
[2019-06-25] MEDS: PRENATAL VITAMINS W/ FOLIC ACID TABLET (FP) PO SCH (10:11)
--- NOTE | 2019-06-25 10:46 | PN ---
S CIWA - CIWA Score Nausea/Vomitin-Mild Nausea/No Vomiting Muscle Tremors: None Anxiety: 1-Mildly Anxious Agitation: 1-Slight > Activity Paroxysmal Sweats: No Perspiration Orientation: 0-Oriented Tacttile Disturbances: 0-None Auditory Disturbances: 0-None Visual Disturbances: 0-None Headache: 0-None Present CIWA-Ar Total Score: 3 BHS Progress Note (SOAP) Subjective: nausea little anxiety Objective: 06/25/19 10:45 Vital Signs Temperature 97.8 F 06/25/19 09:51 Pulse Rate 101 H 06/25/19 09:51 Respiratory Rate 18 06/25/19 09:51 Blood Pressure 130/85 06/25/19 09:51 O2 Sat by Pulse Oximetry (%) aaox3 ambulating no acute distress Assessment: 06/25/19 10:46 mild withdrawals Plan: continue detox zofran prn d/c in am
[2019-06-25] MEDS: THIAMINE HCL 100 MG TABLET (FP) PO SCH (22:34)
[2019-06-25] MEDS: MELATONIN 5 MG TABLETS PO PRN (22:34)
[2019-06-26] MEDS ORDERED: chlordiazePOXIDE HCL 10 MG CAPSULE PO ONE (05:00)
[2019-06-26 09:46] VITALS: BP 145/79; PULSE 81; TEMP 98.6
[2019-06-26] MEDS: PRENATAL VITAMINS W/ FOLIC ACID TABLET (FP) PO SCH (10:25)
--- NOTE | 2019-06-26 13:57 | DS ---
[facility] Detox Discharge Summary Admission Date: 06/21/19 Discharge Date: 06/26/19 - History Present History: Alcohol Dependence Additional Comments: Pt is medically cleared and is discharged today. Pt completed her detox protocol. Pt is encouraged to follow-up with outpatient CD program and also to follow-up with her PMD. Pt verbalized understanding. Pt is alert and oriented x3 and in no respiratory distress. Pertinent Past History: H/O OA, Afib, and alcohol use disorder. - Physical Exam Results Vital Signs: Vital Signs Temperature 98.6 F 06/26/19 09:46 Pulse Rate 81 06/26/19 09:46 Respiratory Rate 18 06/26/19 09:46 Blood Pressure 145/79 06/26/19 09:46 O2 Sat by Pulse Oximetry (%) Vital Signs 06/26/19 06/26/19 06:00 09:46 Temperature 97.7 F 98.6 F Pulse Rate 69 81 Respiratory 16 18 Rate Blood Pressure 101/50 L 145/79 Lab Results WBC 4.1 K/mm3 (4.0-10.0) 06/24/19 07:50 RBC 3.72 M/mm3 (3.60-5.2) 06/24/19 07:50 Hgb 12.6 GM/dL (10.7-15.3) 06/24/19 07:50 Hct 37.2 % (32.4-45.2) 06/24/19 07:50 MCV 99.8 fl (80-96) H 06/24/19 07:50 MCHC 34.0 g/dl (32.0-36.0) 06/24/19 07:50 RDW 15.5 % (11.6-15.6) 06/24/19 07:50 Plt Count 214 K/MM3 (134-434) 06/24/19 07:50 Sodium 136 mmol/L (136-145) 06/24/19 08:00 Potassium 4.7 mmol/L (3.5-5.1) 06/24/19 08:00 Chloride 99 mmol/L (98-107) 06/24/19 08:00 Carbon Dioxide 30 mmol/L (21-32) 06/24/19 08:00 Anion Gap 6 MMOL/L (8-16) L 06/24/19 08:00 BUN 9.8 mg/dL (7-18) 06/24/19 08:00 Creatinine 0.5 mg/dL (0.55-1.3) L 06/24/19 08:00 Random Glucose 78 mg/dL (74-106) 06/24/19 08:00 Calcium 9.8 mg/dL (8.5-10.1) 06/24/19 08:00 Labs noted. Pertinent Admission Physical Exam Findings: withdrawal symptoms. - Treatment Hospital Course: Detox Protocol Followed, Detoxed Safely, Responded well, Discharged Condition Good - Medication Discharge Medications: Ambulatory Orders NK [No Known Home Medication] 06/21/19 - Diagnosis (1) Alcohol dependence with uncomplicated withdrawal Current Visit: Yes Status: Acute (2) Alcohol-induced sleep disorder Current Visit: Yes Status: Acute (3) GERD (gastroesophageal reflux disease) Current Visit: Yes Status: Chronic Qualifiers: Esophagitis presence: without esophagitis Qualified Code(s): K21.9 - Gastro -esophageal reflux disease without esophagitis (4) Kyphoscoliosis deformity of spine Current Visit: Yes Status: Chronic (5) Alcohol withdrawal seizure Current Visit: Yes Status: Resolved Qualifiers: Complication of substance-induced condition: uncomplicated Qualified Code(s ): F10.230 - Alcohol dependence with withdrawal, uncomplicated (6) History of atrial fibrillation Current Visit: Yes Status: Resolved - AMA Did Patient Leave Against Medical Advice: No BHS CIWA - CIWA Score Nausea/Vomitin-No Nausea/No Vomiting Muscle Tremors: None Anxiety: 2 Agitation: 0-Normal Activity Paroxysmal Sweats: No Perspiration Orientation: 0-Oriented Tacttile Disturbances: 0-None Auditory Disturbances: 0-None Visual Disturbances: 0-None Headache: 0-None Present CIWA-Ar Total Score: 2
== END 2019-06-26 14:35 | disposition home or self-care (01) | DRG 897 ==
LOC: YASAS 18:00 → Y6N 21:01
PROVIDERS: ADMIT Surgery; ATTEND Surgery
PROC: HZ2ZZZZ Detoxification Services for Substance Abuse Treatment (ICD-10-PCS; principal; 2019-06-21)
DX: F10.230 Alcohol dependence with withdrawal, uncomplicated (principal); F10.282 Alcohol dependence with alcohol-induced sleep disorder; K21.9 Gastro-esophageal reflux disease without esophagitis; M41.9 Scoliosis, unspecified; M19.042 Primary osteoarthritis, left hand; M19.041 Primary osteoarthritis, right hand; Z86.79 Personal history of other diseases of the circulatory system; Z86.69 Personal history of other diseases of the nervous system and sense organs
CPT/HCPCS: 36415; 80053; 81003; 85025; 85027; 86593; 93005; 93010

== ENCOUNTER 2019-06-28 14:16 | Inpatient (IN) | payer OTHER ==
[2019-06-28 17:58] VITALS: BMI 18.8
--- NOTE | 2019-06-28 19:25 | HP ---
CIWA Score Nausea/Vomitin-No Nausea/No Vomiting Muscle Tremors: None Anxiety: 0-No Anxiety, at Ease Agitation: 0-Normal Activity Paroxysmal Sweats: No Perspiration Orientation: 0-Oriented Tacttile Disturbances: 0-None Auditory Disturbances: 0-None Visual Disturbances: 0-None Headache: 0-None Present CIWA-Ar Total Score: 0 - Admission Criteria OASAS Guidelines: Admission for Medically Managed Detox: Requires at least one of the followin. CIWA greater than 12 2. Seizures within the past 24 hours 3. Delirium tremens within the past 24 hours 4. Hallucinations within the past 24 hours 5. Acute intervention needed for co occurring medical disorder 6. Acute intervention needed for co occurring psychiatric disorder 7. Severe withdrawal that cannot be handled at a lower level of care (continued vomiting, continued diarrhea, abnormal vital signs) requiring intravenous medication and/or fluids 8. Admission ROS [facility] Chief Complaint: "I'm trying to stop drinking, unable to do it on my own" Allergies/Adverse Reactions: Allergies Allergy/AdvReac Type Severity Reaction Status Date / Time No Known Allergies Allergy Verified 06/28/19 17:51 History of Present Illness: 69 year old female with a past medical history of paroxysmal afib (dx 3 years ago, not currently on AC due to self discontinuation), arthritis, back pain, seizures (withdrawal seizures, last one was a few years ago) presented for rehabilitation for alcohol abuse. No other drug or substance use. Was here for detox ~1 week ago. 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 Exam Limitations: No Limitations - Ebola screening Have you traveled outside of the country in the last 21 days: No Have you had contact with anyone from an Ebola affected area: No - Review of Systems Constitutional: No Symptoms Reported EENT: reports: Nose Congestion Respiratory: reports: No Symptoms reported Cardiac: reports: No Symptoms Reported GI: reports: No Symptoms Reported : reports: No Symptoms Reported Musculoskeletal: reports: Back Pain Integumentary: reports: No Symptoms Reported Neuro: reports: No Symptoms reported Endocrine: reports: No Symptoms Reported Hematology: reports: No Symptoms Reported Psychiatric: reports: No Sypmtoms Reported, Judgement Intact, Mood/Affect Appropiate, Orientated x3 Patient History - Patient Medical History Hx Anemia: No Hx Asthma: No Hx Chronic Obstructive Pulmonary Disease (COPD): No Hx Cancer: No Hx Cardiac Disorders: Yes (States one episode of AFib, in past, which resolved years ago) Hx Congestive Heart Failure: No Hx Hypertension: No Hx Hypercholesterolemia: No Hx Pacemaker: No HX Cerebrovascular Accident: No Hx Seizures: Yes (alcohol related-last episode was in 2016) Hx Dementia: No Hx Diabetes: No Hx Gastrointestinal Disorders: No Hx Liver Disease: No Hx Genitourinary Disorders: No Hx Sexually Transmitted Disorders: No Hx Renal Disease (ESRD): No Hx Thyroid Disease: No Hx Human Immunodeficiency Virus (HIV): No (2016 last negative) Hx Hepatitis C: No Hx Depression: No Hx Suicide Attempt: No Hx Bipolar Disorder: No Hx Schizophrenia: No - Patient Surgical History Past Surgical History: Yes Hx Neurologic Surgery: No Hx Cataract Extraction: No Hx Cardiac Surgery: No Hx Lung Surgery: No Hx Breast Surgery: No Hx Breast Biopsy: No Hx Abdominal Surgery: No Hx Appendectomy: No Hx Cholecystectomy: No Hx Genitourinary Surgery: No Hx Section: No Hx Orthopedic Surgery: No Other Surgical History: abscess, left Axilla, 05/11/2018/abscess, left 2nd toe in 2017 Anesthesia Reaction: No - PPD History Date: 06/13/18 Results: 0mm - Reproductive History Last Menstrual Period: 09/07/12 - Smoking Cessation Smoking history: Never smoked Have you smoked in the past 12 months: No Hx Chewing Tobacco Use: No - Substances abused Alcohol Substance route: Oral Frequency: Daily Amount used: 8 crazy stallions, banana shots Age of first use: 17 Date of last use: 06/21/19 Admission Physical Exam BHS - Vital Signs Vital Signs: Vital Signs - 24 hr 06/28/19 17:53 Temperature 97.9 F Pulse Rate 97 H Respiratory 16 Rate Blood Pressure 123/80 Breathalyzer - Breathalyzer Breathalyzer: 0 Urine Drug Screen - Test Device Lot number: [id number] Expiration date: 03/05/21 - Control Is test valid?: Yes - Results Drug screen NEGATIVE: No Urine drug screen results: BZO-Benzodiazepines Inpatient Rehab Admission - Rehab Decision to Admit Inpatient rehab admission?: Yes - Initial Determination Are CD services needed?: Yes Free of communicable disease: Yes Not in need of hospitalization: Yes - Rehab Admission Criteria Previous failed treatment: No Poor recovery environment: No Comorbidities: No Lacks judgement: No Patient is meeting Inpatient Rehab admission criteria:: Yes
--- NOTE | 2019-06-28 19:36 | PN ---
Teaching Attending Note Name of Resident: Swapnil Gtz ATTENDING PHYSICIAN STATEMENT I saw and evaluated the patient. I reviewed the resident's note and discussed the case with the resident. I agree with the resident's findings and plan as documented. SUBJECTIVE: 69 yo with alcohol use disorder- here for rehab. Completed detox last week- not drinking since then. h/o afib- not on meds /arthritis OBJECTIVE: Vital Signs - 24 hr 06/28/19 17:53 Temperature 97.9 F Pulse Rate 97 H Respiratory 16 Rate Blood Pressure 123/80 alert and oriented not in afib ASSESSMENT AND PLAN: Alcohol use disorder- rehab
[2019-06-28] MEDS ORDERED: MENTHOL/PHENOL 1 EACH UD MM PRN (19:40)
[2019-06-28] MEDS ORDERED: guaiFENesin 200 MG/10 ML 10 ML UNIT-DOSE CUPS PO PRN (19:40)
[2019-06-28] MEDS ORDERED: IBUPROFEN 400 MG TABLET (FP) PO PRN (19:40)
[2019-06-28] MEDS ORDERED: ACETAMINOPHEN 325 MG TABLET (FP) PO PRN (19:40)
[2019-06-28] MEDS ORDERED: P-EPHED 60MG/TRIPROLIDI 2.5MG TABLET PO PRN (19:40)
[2019-06-28] MEDS ORDERED: LOPERAMIDE HCL 2 MG CAPSULE PO PRN (19:40)
[2019-06-28] MEDS ORDERED: MAGNESIUM CITRATE 300 ML BOTTLE PO PRN (19:40)
[2019-06-28] MEDS ORDERED: MAG HYDROX/AL HYDROX/SIMETH 30 ML UNIT-DOSE CUP PO PRN (19:40)
[2019-06-28] MEDS ORDERED: MAGNESIUM HYDROX 2400MG/30ML ORAL SUSPENSION 30 ML CUP PO PRN (19:40)
[2019-06-28] MEDS: THIAMINE HCL 100 MG TABLET (FP) PO SCH (23:04)
[2019-06-29] MEDS: PRENATAL VITAMINS W/ FOLIC ACID TABLET (FP) PO SCH (09:45)
[2019-06-29 10:29] LABS: URINE APPEARANCE CLEAR; URINE BILIRUBIN NEGATIVE (NEGATIVE); URINE COLOR YELLOW; URINE GLUCOSE (UA) NEGATIVE (NEGATIVE); URINE KETONE NEGATIVE (NEGATIVE); URINE LEUK ESTERASE NEGATIVE (NEGATIVE); URINE NITRITE NEGATIVE (NEGATIVE); URINE PROTEIN NEGATIVE (NEGATIVE); URINE UROBILINOGEN 0.2 mg/dL (0.2-1.0)
[2019-06-29] MEDS: THIAMINE HCL 100 MG TABLET (FP) PO SCH (21:23)
[2019-06-30] MEDS: PRENATAL VITAMINS W/ FOLIC ACID TABLET (FP) PO SCH (09:51)
[2019-06-30] MEDS: THIAMINE HCL 100 MG TABLET (FP) PO SCH (21:57)
[2019-07-01] MEDS: PRENATAL VITAMINS W/ FOLIC ACID TABLET (FP) PO SCH (09:54)
[2019-07-01] MEDS: THIAMINE HCL 100 MG TABLET (FP) PO SCH (21:51)
[2019-07-02] MEDS: PRENATAL VITAMINS W/ FOLIC ACID TABLET (FP) PO SCH (10:31)
[2019-07-02] MEDS: THIAMINE HCL 100 MG TABLET (FP) PO SCH (21:29)
[2019-07-03] MEDS: PRENATAL VITAMINS W/ FOLIC ACID TABLET (FP) PO SCH (09:58)
[2019-07-03] MEDS: THIAMINE HCL 100 MG TABLET (FP) PO SCH (21:39)
[2019-07-04] MEDS: PRENATAL VITAMINS W/ FOLIC ACID TABLET (FP) PO SCH (09:57)
[2019-07-04] MEDS: THIAMINE HCL 100 MG TABLET (FP) PO SCH (21:38)
[2019-07-05] MEDS: MELATONIN 5 MG TABLETS PO PRN (00:36)
[2019-07-05] MEDS: PRENATAL VITAMINS W/ FOLIC ACID TABLET (FP) PO SCH (09:51)
[2019-07-05] MEDS: THIAMINE HCL 100 MG TABLET (FP) PO SCH (21:12)
[2019-07-06] MEDS: MELATONIN 5 MG TABLETS PO PRN ×2 (01:04→23:21)
[2019-07-06] MEDS: PRENATAL VITAMINS W/ FOLIC ACID TABLET (FP) PO SCH (09:48)
[2019-07-06] MEDS: THIAMINE HCL 100 MG TABLET (FP) PO SCH (21:25)
[2019-07-07] MEDS: PRENATAL VITAMINS W/ FOLIC ACID TABLET (FP) PO SCH (09:44)
[2019-07-07] MEDS: THIAMINE HCL 100 MG TABLET (FP) PO SCH (21:25)
[2019-07-07] MEDS: MELATONIN 5 MG TABLETS PO PRN (23:37)
[2019-07-08] MEDS: PRENATAL VITAMINS W/ FOLIC ACID TABLET (FP) PO SCH (09:49)
[2019-07-08] MEDS ORDERED: FLU VACCINE QUAD 60 MCG/0.5 ML (MDV 19-20) IM ONE (12:00)
[2019-07-08] MEDS: THIAMINE HCL 100 MG TABLET (FP) PO SCH (21:19)
[2019-07-09] MEDS: PRENATAL VITAMINS W/ FOLIC ACID TABLET (FP) PO SCH (09:47)
[2019-07-09] MEDS: THIAMINE HCL 100 MG TABLET (FP) PO SCH (21:13)
[2019-07-10] MEDS: MELATONIN 5 MG TABLETS PO PRN (01:27)
[2019-07-10] MEDS: PRENATAL VITAMINS W/ FOLIC ACID TABLET (FP) PO SCH (09:46)
[2019-07-10] MEDS ORDERED: PT OWN MED DRAWER 7, Y5N ONE (10:15)
[2019-07-10] MEDS ORDERED: PNEUMOCOCCAL 23 VACCINE 0.5 ML VIAL IM ONE (12:00)
[2019-07-10] MEDS: THIAMINE HCL 100 MG TABLET (FP) PO SCH (21:16)
[2019-07-11 07:30] VITALS: PULSE 71
[2019-07-11] MEDS: PRENATAL VITAMINS W/ FOLIC ACID TABLET (FP) PO SCH (09:47)
[2019-07-11] MEDS: THIAMINE HCL 100 MG TABLET (FP) PO SCH (21:11)
[2019-07-12 07:21] VITALS: BP 150/92; TEMP 97.8
--- NOTE | 2019-07-12 08:43 | DS ---
[facility] Rehab Discharge Summary - [facility] Rehab Discharge Summary Admission Date: 06/28/19 Discharge Date: 07/12/19 - History Present History: Alcohol dependence Additional Comments: Pt is a 69 y/o female with alcohol use disorder admitted to rehab and discharged today. Pt reports she has no PMD and will be changing her [employer] insurance. However, pt reports she goes to [facility] for medical Care. Pertinent Past History: Alcohol seizure Gerd(no meds) kyphosis/Scoliosis A Fib(no meds) - Discharge Physical Exam Vital Signs: Vital Signs Temperature 97.8 F 07/12/19 07:20 Pulse Rate 71 07/12/19 07:20 Respiratory Rate 18 07/12/19 07:20 Blood Pressure 150/92 07/12/19 07:20 O2 Sat by Pulse Oximetry (%) Alert o x 3 nad oob ambulating with steady gait cardiac:s1 s2,rrr lungs:cta,ivan. Abdomen:soft,+bs,nt,nd Extremities/Skin:No edema,full ROM,skin intact Pertinent Admission Physical Exam Findings: Laboratory Tests 06/29/19 08:15 Urine Color Yellow Urine Appearance Clear Urine pH 7.0 Ur Specific [place] 1.004 L Urine Protein Negative Urine Glucose (UA) Negative Urine Ketones Negative Urine Blood Negative Urine Nitrite Negative Urine Bilirubin Negative Urine Urobilinogen 0.2 Ur Leukocyte Esterase Negative - Treatment Discharge Condition: Discharge condition good Hospital Course: Rehabilitated safely,responded well Pt declined aftercare as per counselor's note Ms Crista Longoriaario - Medication Discharge Medications: Ambulatory Orders NK [No Known Home Medication] 06/21/19 - Medication-Assisted Treatment (MAT) Medication-Assisted Treatment (MAT): No - Discharge Instructions Diet, activity, other medical instructions: Diet: Regular Activity: oob ad randall Other medical instructions:Follow up with primary care at [facility] clinic 1-2 weeks after discharge. - Diagnosis (1) Alcohol dependence Status: Chronic Qualifiers: Substance use status: uncomplicated Qualified Code(s): F10.20 - Alcohol dependence, uncomplicated (2) GERD (gastroesophageal reflux disease) Status: Chronic Qualifiers: Esophagitis presence: esophagitis presence not specified Qualified Code(s) : K21.9 - Gastro-esophageal reflux disease without esophagitis (3) Kyphoscoliosis deformity of spine Status: Chronic (4) Seizure Status: Suspected Qualifiers: Convulsion type: unspecified Qualified Code(s): R56.9 - Unspecified convulsions (5) History of atrial fibrillation Status: Resolved - Follow-up Referral Minutes to complete discharge: 20 - AMA Did Patient Leave Against Medical Advice: No
[2019-07-12] MEDS: PRENATAL VITAMINS W/ FOLIC ACID TABLET (FP) PO SCH (09:15)
== END 2019-07-12 09:20 | disposition home or self-care (01) | DRG 895 ==
LOC: YASAS 14:16 → Y3W 20:08 → Y3E 06-29 22:45
PROVIDERS: ADMIT Neuromusculoskeletal Medicine & OMM; ATTEND Neuromusculoskeletal Medicine & OMM
PROC: HZ42ZZZ Group Counseling for Substance Abuse Treatment, Cognitive-Behavioral (ICD-10-PCS; principal; 2019-06-28)
DX: F10.20 Alcohol dependence, uncomplicated (principal); K21.9 Gastro-esophageal reflux disease without esophagitis; M41.9 Scoliosis, unspecified; Z86.69 Personal history of other diseases of the nervous system and sense organs; Z86.79 Personal history of other diseases of the circulatory system
CPT/HCPCS: 81003; 90732; G0009; Q2036